=== PATIENT | male | born 1935 | race Caucasian/White ===

== ENCOUNTER → 2016-11-01 | Outpatient (CLI) | payer OTHER ==
[~2016-11-01] MED LIST: ADVIN25/60 INH; ALBU1AER9 INH; CHOL1000 PO; CIPR-255 PO; DOXY1TAB6 PO; GARL10007 PO; HYDR-5688 PO; KETO0.5S22 OPR; LEVO88TA3 PO; LOSA100T65 PO; MOME200A INH; NRV/10 PO; OXYC-609 PO; PHEN-775 PO; PHEN-876 PO; POTA20TA16 PO; POTASSIUM PO; PRDFOPS OPR; PRED-301 PO; RST/30 PO; VNTHFA/IN INH
[2016-11-01 14:58] LABS: BASO % 0.4 %; BASO ABS # 0.04 K/uL (0-0.2); COMPLETE YES; EOS % 4.6 %; HEMATOCRIT 47.8 % (42-52); IG% 0.4 %; LYMPH % 29.8 %; MEAN CELL VOLUME 84.5 fL (80-100); MEAN CORPUSCULAR HEMOGLOBIN 28.4 pg (25-34); MEAN CORPUSCULAR HGB CONC 33.7 g/dl (32-36); MEAN PLATELET VOLUME 10.7 fL (7.4-10.4); MONO % 15.3 %; NEUT % 49.5 %; PLATELET COUNT 306 K/uL (130-400); RED BLOOD COUNT 5.66 M/uL (4.7-6.1); WHITE BLOOD COUNT 11.07 K/uL (4.8-10.8)
[2016-11-01 15:09] LABS: CALCIUM 9.6 mg/dl (8.5-10.1)
[2016-11-01 15:14] LABS: ALT/SGPT 29 U/L (12-78); BLOOD UREA NITROGEN 10 mg/dl (7-18); BUN/CREATININE RATIO 8.6 (10-20); CARBON DIOXIDE 28 mmol/L (21-32); CHLORIDE 105 mmol/L (98-107); CHOLESTEROL 177 mg/dl (0-200); GLUCOSE 80 mg/dl (70-99); POTASSIUM 3.8 mmol/L (3.5-5.1); SODIUM 141 mmol/L (136-145); TRIGLYCERIDES 175 mg/dl (0-150); VERY LOW DENSITY LIPOPROT CALC 35 mg/dl
[2016-11-01 15:24] LABS: ALB/GLOB RATIO 1.3 (0.9-2); ALKALINE PHOSPHATASE 81 U/L (45-117); AST/SGOT 19 U/L (15-37); CHOLESTEROL/HDL RATIO 4.4; HDL CHOLESTEROL 40 mg/dl; LDL CHOLESTEROL CALCULATED 102 mg/dl
== END | disposition home or self-care (01) ==
LOC: C.LABBC 12:00
PROVIDERS: ATTEND Family Medicine
DX: E03.9 Hypothyroidism, unspecified (principal); D72.829 Elevated white blood cell count, unspecified; N40.1 Benign prostatic hyperplasia with lower urinary tract symptoms; I25.10 Atherosclerotic heart disease of native coronary artery without angina pectoris; I10 Essential (primary) hypertension

== ENCOUNTER → 2017-02-14 | Outpatient (CLI) | payer OTHER | END | disposition home or self-care (01) | LOC: C.LAB 16:33 | PROVIDERS: ATTEND Nurse Practitioner Family | DX: R30.0 Dysuria (principal) ==

== ENCOUNTER → 2017-02-22 | Outpatient (CLI) | payer OTHER | END | disposition home or self-care (01) | LOC: C.PATHSPEC 14:34 | PROVIDERS: ATTEND Nurse Practitioner Family | DX: R31.0 Gross hematuria (principal) ==

== ENCOUNTER → 2017-02-22 | Outpatient (CLI) | payer OTHER ==
[2017-02-22 16:13] LABS: BLOOD UREA NITROGEN 16 mg/dl (7-18); BUN/CREATININE RATIO 13.5 (10-20)
== END | disposition home or self-care (01) ==
LOC: C.LAB 14:42
PROVIDERS: ATTEND Nurse Practitioner Family
DX: N40.1 Benign prostatic hyperplasia with lower urinary tract symptoms (principal); R31.0 Gross hematuria

== ENCOUNTER → 2017-03-01 | Outpatient (CLI) | payer OTHER ==
[~2017-03-01] MED LIST changes: +OPTIRAY 320 IV PRN
--- NOTE | 2017-03-01 10:05 | DIAGNOSTIC IMAGING REPORT ---
CT ABD/PELVIS COMBO CLINICAL HISTORY: GROSS HEMATURIA COMPARISON STUDY: Noncontrast CT scan dated 12/01/2014 TECHNIQUE: Unenhanced images are obtained to the abdomen and pelvis. The patient was injected with 50 cc Optiray 320. After 5 minute delay, the patient is rescanned in a dynamic helical fashion during the additional administration of 50 cc of Optiray 320. A dose lowering technique was utilized adhering to the principles of ALARA. CT DOSE: 748.37 mGy.cm FINDINGS: Lower chest: There is bibasal atelectasis/interstitial scarring. The heart is borderline enlarged. Liver: The contrast-enhanced liver is normal in size, contour, and attenuation. There is no intrahepatic biliary ductal dilatation. The hepatic veins and portal veins are patent. Gallbladder: Cholelithiasis Spleen: Normal in size and attenuation. Pancreas: Unremarkable. Adrenal glands: Unremarkable. Kidneys: There is a 6 mm left renal calculus. There is left-sided hydronephrosis and hydroureter. There is an 11 mm lower pole left renal cyst. There is asymmetric left-sided bladder wall thickening, suspicious for a mass. Cystoscopic evaluation is recommended in follow-up Bowel: There are no transition zones to indicate bowel obstruction. There is no acute appendicitis. There is no acute diverticulitis. There is mild fecal retention. Peritoneum: There is no intraperitoneal free air or abdominal ascites. Vasculature: There is an infrarenal abdominal aortic aneurysm measuring 36 mm in diameter Adenopathy: There is an 8mm left iliac artery lymph node. Pelvic viscera: The prostate is enlarged. There is asymmetric left-sided bladder wall thickening suspicious for a mass. Skeletal structures: There are postsurgical changes of a lumbar spinal fusion. IMPRESSION: 1. Asymmetric left-sided bladder wall thickening suspicious for mass. This results in left-sided obstruction with left-sided hydroureteronephrosis. Cystoscopic evaluation is recommended in follow-up. 2. 6 mm left renal calculus 3. Cholelithiasis 4. 36 mm infrarenal abdominal aortic aneurysm Electronically signed by: Mario Rendon M.D. 03/01/2017 10:03 AM Dictated Date/Time: 03/01/2017 9:55 AM
== END | disposition home or self-care (01) ==
LOC: C.CTS 09:14
PROVIDERS: ATTEND Nurse Practitioner Family
DX: R31.0 Gross hematuria (principal); N20.0 Calculus of kidney; K80.20 Calculus of gallbladder without cholecystitis without obstruction; I71.4 Abdominal aortic aneurysm, without rupture

== ENCOUNTER → 2017-03-04 | Outpatient (CLI) | payer OTHER ==
[~2017-03-04] MED LIST changes: -OPTIRAY 320 IV PRN
--- NOTE | 2017-03-04 15:40 | DIAGNOSTIC IMAGING REPORT ---
CHEST 2 VIEWS ROUTINE CLINICAL HISTORY: CERVICAL DISC DISEASE, LEFT HAND WEAKNESS, limb swelling. Bladder carcinoma. Asthma. Preoperative study. COMPARISON STUDY: 12/01/2014 FINDINGS: The cardiac and mediastinal contours are normal. There is no evidence of focal pulmonary consolidation. There is no evidence of failure. No pleural effusions are visualized.[ On the PA film, there is slight sclerosis at the right T7 costovertebral junction. This is felt to be stable. There are old right-sided rib fractures. There are postsurgical changes within the cervical spine. IMPRESSION: No active disease in the chest. Electronically signed by: Mario Rendon M.D. 03/04/2017 3:39 PM Dictated Date/Time: 03/04/2017 3:37 PM
[2017-03-04 15:44] LABS: BASO % 0.2 %; BASO ABS # 0.02 K/uL (0-0.2); COMPLETE YES; EOS % 0.9 %; HEMATOCRIT 44.1 % (42-52); IG% 0.4 %; LYMPH % 21.7 %; LYMPH ABS # 2.51 K/uL (1.2-3.4); MEAN CELL VOLUME 85.1 fL (80-100); MEAN CORPUSCULAR HEMOGLOBIN 29.7 pg (25-34); MEAN CORPUSCULAR HGB CONC 34.9 g/dl (32-36); MEAN PLATELET VOLUME 10.9 fL (7.4-10.4); MONO % 10.6 %; NEUT % 66.2 %; PLATELET COUNT 289 K/uL (130-400); RED BLOOD COUNT 5.18 M/uL (4.7-6.1); WHITE BLOOD COUNT 11.55 K/uL (4.8-10.8)
[2017-03-04 16:09] LABS: BLOOD UREA NITROGEN 13 mg/dl (7-18); BUN/CREATININE RATIO 9.3 (10-20); CALCIUM 8.8 mg/dl (8.5-10.1); CARBON DIOXIDE 29 mmol/L (21-32); CHLORIDE 107 mmol/L (98-107); GLUCOSE 86 mg/dl (70-99); POTASSIUM 4.1 mmol/L (3.5-5.1); SODIUM 142 mmol/L (136-145)
== END | disposition home or self-care (01) ==
LOC: C.CPL 14:12
PROVIDERS: ATTEND Urology
DX: C67.9 Malignant neoplasm of bladder, unspecified (principal); M50.30 Other cervical disc degeneration, unspecified cervical region; M62.81 Muscle weakness (generalized); M79.89 Other specified soft tissue disorders

== ENCOUNTER → 2017-03-11 | Day surgery (SDC) | payer OTHER ==
[2017-03-06 13:47] VITALS: BMI 25.0
[~2017-03-11] VITALS: Ht 172.7 cm; Wt 75.0 kg
[~2017-03-11] MED LIST changes: +ACETAMINOPHEN 325 MG TAB PO PRN; +ATROPINE SULFATE 0.1 MG/ML 5ML SYR IV PRN; +BELLADONNA/OPIUM SUPP 60 MG SUPP PR ONE; +CIPROFLOXACIN / D5W 400 MG IV SCH; +CONRAY 30% 150ML BOTTLE ONE; +DEXAMETHASONE SOD INJ 4 MG/ML VIAL ONE; +EpHEDrine SULFATE INJ 50 MG/ML AMP IV PRN; +FENTANYL CITRATE INJ 50 MCG/1 ML 2 ML VIAL IV PRN; +FENTANYL CITRATE INJ 50 MCG/1 ML 2 ML VIAL ONE; +GLYCOPYRROLATE INJ 0.2 MG/ML VIAL ONE; -KETO0.5S22 OPR; +LACTATED RINGER'S 1000ML 1,000 ML IV SCH; +LIDOCAINE HCL 2% 2 ML VIAL (20MG/ML) ONE; -MOME200A INH; +NEOSTIGMINE METHYLSULFATE 5 MG/5 ML SYR ONE; +ONDANSETRON INJ 2 MG/ML 2 ML VIAL IV PRN; +ONDANSETRON INJ 2 MG/ML 2 ML VIAL ONE; -OXYC-609 PO; +OXYCODONE/ACETAMINOPHEN 5-325 TAB PO PRN; +PHENAZOPYRIDINE HCL 200 MG TAB PO STA; -POTASSIUM PO; -PRDFOPS OPR; +PROPOFOL IV EMULSION 10 MG/ML 20 ML VIAL IV ONE; +ROCURONIUM BROMIDE 10 MG/ML 5 ML VIAL IV ONE; +SODIUM CHLORIDE 0.9% 1000ML 1,000 ML IV SCH
[2017-03-11 12:33] VITALS: BP 155/89; PULSE 65; TEMP 36.8; O2SAT 96; Ht 172.7 cm; Wt 75.0 kg
--- NOTE | 2017-03-11 14:12 | History & Physical Bridge Note ---
H&P Re-Evaluation Bridge Note: I have examined the patient, reviewed the History & Physical and in the interval since the performance of the History & Physical I have noted the following changes of clinical significance: No changes noted
--- NOTE | 2017-03-11 16:25 | Discharge Instructions ---
Discharge Instructions Date of Service Mar 11, 2017. Admission Reason for Admission: Bladder Cancer Discharge Discharge Diagnosis / Problem: bladder cancer; hydronephrosis Discharge Goals Goal(s): Decrease discomfort, Improve function, Increase independence, Improve disease control Activity Recommendations Activity Limitations: resume your previous activity Lifting Limitations: none Exercise/Sports Limitations: none May Resume Sexual Activity: after follow-up appointment Shower/Bathe: no limitations Driving or Machine Use: resume 1 day after discharge . Instructions / Follow-Up Instructions / Follow-Up Please come to Dr. Conklin's office on Mar 15 at 9AM to have your catheter removed. It is normal for there to be some blood within the urine for the next several weeks. Discharge Diet Recommended Diet: Regular Diet Procedures Procedures Performed: Transurethral Resection Extra Large Bladder Tumor; Left Ureteral Stent, Cystoscopy Pending Studies Studies pending at discharge: no Medical Emergencies . Who to Call and When: Medical Emergencies: If at any time you feel your situation is an emergency, please call 911 immediately. . Non-Emergent Contact Non-Emergency issues call your: Urologist Call Non-Emergent contact if: you have a fever, temperature is above 101.5, your pain is not controlled . . "Provider Documentation" section prepared by Antwan Paredes. . VTE Core Measure Inpt VTE Proph given/why not?: Treatment not indicated [place] Drug Monitoring Program Search Results: patient reviewed within database, no issues identified
--- NOTE | 2017-03-11 16:41 | [facility] Operative Report ---
Operative Report Operative Date Mar 11, 2017. Pre-Operative Diagnosis Malignant Neoplasm of Bladder; left hydronephrosis Post-Operative Diagnosis Malignant Neoplasm of Bladder; left hydronephrosis Procedure(s) Performed Transurethral Resection of Large Bladder Tumor; Left Ureteral Stent (6Fx 26cm), Cystoscopy Surgeon Dr. Alexis Conklin Hydraulic Assembler Surgeon(s) None Estimated Blood Loss 20mL Findings Very large, papillary appearing bladder tumors covering the left half of the trigone and the bladder. Left UO buried within the tumor, but unroofed and stented. Specimens Specimen A. Bladder Tumor Drains [id number] stent Anesthesia Gen Complication(s) None Disposition Recovery Room / PACU (stable) Indications Large bladder tumor and hydronephrosis Description of Procedure Patient identified in the preoperative holding area and appropriate consent reviewed and completed. After being transported to the operating suite, he received appropriate general anesthesia and ciprofloxacin. I began the case by passing a 24 Palauan resectoscope with visual obturator and 30 lens. He has no evidence of stricture disease. His prostate is moderately enlarged with a relatively high bladder neck. Inspection of the bladder immediately reveals very large bladder tumors arising from the left lateral aspect of the trigone and left lateral bladder wall. Full extent of the tumor was hard to evaluate with a 30 lens, however examining with a 70 lens revealed that the tumor was limited to the left lateral bladder wall and trigone plus some extension anteriorly and to approximately the midline posteriorly. The right ureteral orifice was easily visualized but the left ureteral orifice was not seen. Prior to the procedure, I had told the patient I was uncertain his tumor was resectable, however after performing a full inspection with the rigid scope, I felt that there was a reasonable chance of full resection. In turn, I exchanged the visual obturator for a resecting loop element. I resected the tumor entirely, beginning at the medial section working laterally. After resecting this flush with the bladder wall, I obtained meticulous hemostasis. We did paralyze the patient prior to this resection for fear of an obturator reflex. I evacuated a significant amount of bladder tumor as specimen and passed it off of the table. I then returned to the bladder with the scope and began searching for the left ureteral orifice. I found an area that looked highly like the possible location of the UO, and probed it with a sensor wire and 6 Palauan open-ended catheter without success. As I moved further I noted a small amount of papillary tumor which I assumed was simple a few tumor fronds that I had missed with my initial resection. I subsequently used a resecting loop to re-resect this area which proved to successfully unroof and expose the left UO. I added the resected tumor to the specimen and then guided a sensor wire and 6 Palauan open-ended catheter into the left ureteral orifice. Fluoroscopic examination showed appropriate advancement toward the kidney, but I confirmed the anatomy further by performing a retrograde pyelogram. He was noted to have a very tortuous and very dilated left ureter. There was a full twist within the proximal ureter, but I was able to successfully guide a sensor wire around this to straighten the tortuosity. I then placed a 6 Palauan by 26 centimeter double-J ureteral stent. After confirming the stent position, I returned the bladder and again inspected for hemostasis. I ensured all chips were evacuated fully from the bladder, and I placed a wire through the scope to serve as a catheter guide. Utilizing this wire I placed a 22 Palauan councill tip catheter into the bladder. The balloon was inflated, and the case concluded. Patient was subsequently extubated and taken to the PACU in stable condition. Of note, I considered mitomycin C instillation, but elected to not place this medication secondary to the size of the resected field and the stent placement. I attest to the content of the Intraoperative Record and any orders documented therein. Any exceptions are noted below.
--- NOTE | 2017-03-11 17:15 | Anesthesiology Progress Note ---
Anesthesia Post Op Note Date & Time Mar 11, 2017 at 17:15 Vital Signs Pain Intensity: 0 Vital Signs Past 12 Hours Date Time Temp Pulse Resp B/P (MAP) Pulse Ox O2 Delivery O2 Flow Rate FiO2 03/11/17 17:11 121/87 17 17:07 57 16 17 17:07 71 16 94 17 17:07 57 16 17 17:07 71 16 94 17 17:06 132/95 17 17:06 132/95 03/11/17 17:02 66 11 95 03/11/17 17:02 66 11 95 03/11/17 17:02 66 11 03/11/17 17:02 66 11 03/11/17 17:01 139/77 03/11/17 17:00 65 17 96 17 17:00 65 17 03/11/17 16:56 134/86 1817 16:56 36.5 65 19 134/86 (94) 95 17 16:55 67 18 17 16:55 70 18 94 1817 16:52 133/91 17 16:50 65 14 97 18/17 16:50 64 14 1817 16:49 140/86 18/17 16:49 140/86 03/11/17 16:46 70 14 95 18/17 16:46 69 14 18/17 16:46 69 14 18/17 16:46 70 14 95 18/17 16:42 130/82 18/17 16:42 130/82 18/17 16:41 62 16 18/17 16:41 74 16 96 18/17 16:41 62 16 18/17 16:41 74 16 96 18/17 16:37 100/88 18/17 16:37 100/88 18/17 16:36 65 26 18/17 16:36 71 26 94 18/17 16:36 71 26 94 18/17 16:36 65 26 18/17 16:32 137/97 18/17 16:32 137/97 18/17 16:31 73 18 92 9/18/17 16:31 64 18 03/11/17 16:31 36.3 75 16 137/97 97 Nasal Cannula 2 03/11/17 16:31 64 18 03/11/17 16:31 73 18 92 03/11/17 12:33 36.8 65 18 155/89 (111) 96 Room Air Notes Mental Status: alert / awake / arousable, participated in evaluation Pt Amnestic to Procedure: Yes Nausea / Vomiting: adequately controlled Pain: adequately controlled Airway Patency, RR, SpO2: stable & adequate BP & HR: stable & adequate Hydration State: stable & adequate Anesthetic Complications: no major complications apparent
[2017-03-11 17:20] VITALS: BP 150/79; PULSE 61; TEMP 36.5; O2SAT 94
[2017-03-11 18:10] VITALS: BP 147/77; PULSE 69; TEMP 36.5; O2SAT 93
== END | disposition home or self-care (01) ==
LOC: C.ACU 11:12
PROVIDERS: ATTEND Urology
DX: C67.0 Malignant neoplasm of trigone of bladder (principal); N13.30 Unspecified hydronephrosis; N40.1 Benign prostatic hyperplasia with lower urinary tract symptoms; N13.8 Other obstructive and reflux uropathy; K21.9 Gastro-esophageal reflux disease without esophagitis; M19.90 Unspecified osteoarthritis, unspecified site; J45.909 Unspecified asthma, uncomplicated; I25.10 Atherosclerotic heart disease of native coronary artery without angina pectoris; J44.9 Chronic obstructive pulmonary disease, unspecified; I10 Essential (primary) hypertension; E03.9 Hypothyroidism, unspecified; M48.06 Spinal stenosis, lumbar region; F17.220 Nicotine dependence, chewing tobacco, uncomplicated; Z86.010 Personal history of colon polyps; Z87.440 Personal history of urinary (tract) infections; Z90.49 Acquired absence of other specified parts of digestive tract; Z80.0 Family history of malignant neoplasm of digestive organs; Z80.52 Family history of malignant neoplasm of bladder

== ENCOUNTER → 2017-03-20 | Outpatient (CLI) | payer OTHER ==
[~2017-03-20] MED LIST changes: -ACETAMINOPHEN 325 MG TAB PO PRN; -ATROPINE SULFATE 0.1 MG/ML 5ML SYR IV PRN; -BELLADONNA/OPIUM SUPP 60 MG SUPP PR ONE; -CIPR-255 PO; -CIPROFLOXACIN / D5W 400 MG IV SCH; -CONRAY 30% 150ML BOTTLE ONE; -DEXAMETHASONE SOD INJ 4 MG/ML VIAL ONE; -EpHEDrine SULFATE INJ 50 MG/ML AMP IV PRN; -FENTANYL CITRATE INJ 50 MCG/1 ML 2 ML VIAL IV PRN; -FENTANYL CITRATE INJ 50 MCG/1 ML 2 ML VIAL ONE; -GLYCOPYRROLATE INJ 0.2 MG/ML VIAL ONE; -LACTATED RINGER'S 1000ML 1,000 ML IV SCH; -LIDOCAINE HCL 2% 2 ML VIAL (20MG/ML) ONE; -NEOSTIGMINE METHYLSULFATE 5 MG/5 ML SYR ONE; -ONDANSETRON INJ 2 MG/ML 2 ML VIAL IV PRN; -ONDANSETRON INJ 2 MG/ML 2 ML VIAL ONE; -OXYCODONE/ACETAMINOPHEN 5-325 TAB PO PRN; -PHENAZOPYRIDINE HCL 200 MG TAB PO STA; -PROPOFOL IV EMULSION 10 MG/ML 20 ML VIAL IV ONE; -ROCURONIUM BROMIDE 10 MG/ML 5 ML VIAL IV ONE; -SODIUM CHLORIDE 0.9% 1000ML 1,000 ML IV SCH
[2017-03-20 12:40] LABS: URINE APPEARANCE CLEAR (CLEAR); URINE BILIRUBIN NEG (NEG); URINE COLOR YELLOW; URINE NITRITE NEG (NEG); URINE PH 6.5 (4.5-7.5); URINE SPECIFIC GRAVITY 1.013 (1.000-1.030); UROBILINOGEN NEG (NEG)
[2017-03-20 12:47] LABS: MANUAL MICROSCOPIC REQUIRED? NO; REVIEW REQ? NO
== END | disposition home or self-care (01) ==
LOC: C.LAB 10:45
PROVIDERS: ATTEND Urology
DX: C67.9 Malignant neoplasm of bladder, unspecified (principal)

== ENCOUNTER → 2017-06-10 | Outpatient (CLI) | payer OTHER ==
[2017-05-30 12:40] LABS: BLOOD UREA NITROGEN 15 mg/dl (7-18); BUN/CREATININE RATIO 12.7 (10-20); CREATININE 1.15 mg/dl (0.60-1.40)
[~2017-06-10] MED LIST changes: -ALBU1AER9 INH; -DOXY1TAB6 PO; -HYDR-5688 PO; +OPTIRAY 320 IV PRN; -PHEN-775 PO; -PHEN-876 PO
--- NOTE | 2017-06-10 13:29 | DIAGNOSTIC IMAGING REPORT ---
ABD/PELVIS COMBO CLINICAL HISTORY: 82 years-old Male presenting with bladder cancer follow-up. TECHNIQUE: Multidetector CT of the abdomen and pelvis was performed before and after the administration of intravenous contrast. IV contrast: 93 mL of Optiray 320. A dose lowering technique was used consistent with the principles of ALARA (as low as reasonably achievable). COMPARISON: 03/01/2017. CT DOSE (mGy.cm): The estimated cumulative dose is 1582.63 mGycm. FINDINGS: [employer]ified [employer] Professional topogram: Posterior lumbar fusion of L4-S1 with interbody spacers. Lung bases: Calcified granuloma at the right lung base. Thin-like opacities at the left lung base likely atelectasis or scarring. Multichamber enlargement of the heart. Aortic valve calcification. No pericardial or pleural effusion. Liver: Normal morphology. Normal density. No focal lesion. Patent hepatic vasculature. Biliary: No intrahepatic or extrahepatic biliary ductal dilatation. Gallbladder contains gallstones. Pancreas: Normal. Spleen: Normal. Adrenal glands: Normal. Kidneys and ureters: Nonobstructing 6 mm calculus in the interpolar region of the left kidney. Postcontrast imaging demonstrates moderate left pelvocaliectasis with left hydroureter. Left ureter remains dilated to the level of the left vesicoureteral junction. No right hydronephrosis. Allowing for nonopacification of the left ureter secondary to obstruction, no gross evidence of a filling defect to suggest mass lesion. A hypodense lesion at the lower pole of the left kidney is consistent with a simple cyst. Right ureter normal. Bladder: There has been interval resection of the irregular bladder wall thickening along the left wall of the bladder. Mild circumferential bladder wall thickening. Minimal polypoid irregularity gage (series 7 image 62). Pelvic organs: Prostate enlargement likely secondary to benign prostatic hyperplasia. Bowel: Moderate stool burden throughout normal caliber colon. No bowel obstruction. Peritoneal cavity: No free fluid or intraperitoneal gas. Lymph nodes: Few subcentimeter external iliac lymph nodes. No pathologically enlarged lymph nodes by CT size criteria. Vasculature: Aneurysmal dilatation of the infrarenal abdominal aorta, which measures up to 3.4 cm in diameter, previously 3.6 cm. Abdominal wall: Normal. Musculoskeletal: Post surgical changes of bilateral transpedicular screw and ann-marie fixation of L4-S1 with interbody spacers and laminectomy defects of L4-5. No gross evidence of hardware convocation. Bone island noted at L3. Osteopenia. IMPRESSION: 1. Findings consistent with cystoscopic resection of the previously noted bladder mass along the left lateral luminal wall. 2 small polypoid foci along the left lateral lumen suggest residual disease. No additional sites of disease in the bilateral collecting systems. No lymphadenopathy or evidence of metastatic disease in abdomen or pelvis. 2. Left hydroureteronephrosis, unchanged despite resection. 3. 3.4 cm infrarenal abdominal aortic aneurysm. Electronically signed by: Rafiq Kearney M.D. 06/10/2017 1:28 PM Dictated Date/Time: 06/10/2017 1:17 PM
== END | disposition home or self-care (01) ==
LOC: C.CTS 11:38
PROVIDERS: ATTEND Urology
DX: C67.9 Malignant neoplasm of bladder, unspecified (principal); N32.89 Other specified disorders of bladder; N13.30 Unspecified hydronephrosis; I71.4 Abdominal aortic aneurysm, without rupture

== ENCOUNTER → 2017-06-19 | Outpatient (CLI) | payer OTHER ==
[~2017-06-19] MED LIST changes: +CIPR-255 PO; +HYDR-5688 PO; +HYT/2 PO; +MCRB100HP PO; +NITR1CAP16 PO; -OPTIRAY 320 IV PRN; +OXYC-57 PO; +PHEN-775 PO; +PHEN95TA14 PO; +POTA-639 PO; -POTA20TA16 PO; +TRMCR130WC TOP
[2017-06-19 15:46] LABS: BASO % 0.3 %; BASO ABS # 0.04 K/uL (0-0.2); EOS % 0.9 %; EOS ABS # 0.11 K/uL (0-0.5); HEMATOCRIT 43.7 % (42-52); HEMOGLOBIN 14.8 g/dL (14.0-18.0); IG# 0.09 K/uL (0.00-0.02); LYMPH ABS # 2.02 K/uL (1.2-3.4); MEAN CELL VOLUME 87.8 fL (80-100); MEAN CORPUSCULAR HEMOGLOBIN 29.7 pg (25-34); MEAN CORPUSCULAR HGB CONC 33.9 g/dl (32-36); MONO % 8.4 %; NEUT % 72.6 %; NEUT ABS # 8.64 K/uL (1.4-6.5); PLATELET COUNT 297 K/uL (130-400); RED CELL DISTRIBUTION WIDTH CV 15.6 % (11.5-14.5); RED CELL DISTRIBUTION WIDTH SD 49.8 fL (36.4-46.3)
[2017-06-19 16:05] LABS: BLOOD UREA NITROGEN 17 mg/dl (7-18); CALCIUM 9.3 mg/dl (8.5-10.1); CARBON DIOXIDE 29 mmol/L (21-32); CREATININE 1.12 mg/dl (0.60-1.40); GLUCOSE 87 mg/dl (70-99); SODIUM 136 mmol/L (136-145)
== END | disposition home or self-care (01) ==
LOC: C.LAB 13:52
PROVIDERS: ATTEND Urology
DX: C67.9 Malignant neoplasm of bladder, unspecified (principal)

== ENCOUNTER 2017-06-25 09:23 | Day surgery (SDC) | payer OTHER ==
[~2017-06-25] VITALS: Ht 172.7 cm; Wt 75.0 kg
[~2017-06-25 09:23] MED LIST changes: +ATROPINE SULFATE 0.1 MG/ML 5ML SYR IV PRN; -CIPR-255 PO; +CIPROFLOXACIN / D5W 400 MG IV SCH; +EpHEDrine SULFATE INJ 50 MG/ML AMP IV PRN; +FENTANYL CITRATE INJ 50 MCG/1 ML 2 ML VIAL IV PRN; -HYDR-5688 PO; -HYT/2 PO; +KETOROLAC TROMETHAMINE 30 MG/ML VIAL IV. PRN; +LACTATED RINGER'S 1000ML 1,000 ML IV SCH; -MCRB100HP PO; +MITOMYCIN FOR INJ 40 MG in SYRINGE 40 ML IR SCH; -NITR1CAP16 PO; +ONDANSETRON INJ 2 MG/ML 2 ML VIAL IV PRN; -OXYC-57 PO; -PHEN-775 PO; -PHEN95TA14 PO; -TRMCR130WC TOP
[2017-06-25] MEDS ORDERED: MCRB100HP PO (09:47)
[2017-06-25 09:51] VITALS: BP 150/94; PULSE 62; TEMP 36.7; O2SAT 97; Ht 172.7 cm; Wt 75.0 kg
[2017-06-25] MEDS ORDERED: FENTANYL CITRATE INJ 50 MCG/1 ML 2 ML VIAL ONE (10:27)
[2017-06-25] MEDS ORDERED: NITR1CAP16 PO (10:46)
[2017-06-25] MEDS ORDERED: HYDR-5688 PO (10:46)
[2017-06-25] MEDS ORDERED: PHEN95TA14 PO (10:46)
--- NOTE | 2017-06-25 10:48 | Discharge Instructions ---
Discharge Instructions Date of Service Jun 25, 2017. Admission Reason for Admission: Bladder Tumor Discharge Discharge Diagnosis / Problem: bladder cancer Discharge Goals Goal(s): Decrease discomfort, Improve function, Increase independence, Improve disease control Activity Recommendations Activity Limitations: resume your previous activity Lifting Limitations: none Exercise/Sports Limitations: none May Resume Sexual Activity: when tolerated Shower/Bathe: no limitations Driving or Machine Use: resume 1 day after discharge . Instructions / Follow-Up Instructions / Follow-Up Please keep your previously scheduled follow up appointment with Dr. Conklin. Current Hospital Diet Patient's current hospital diet: Discharge Diet Recommended Diet: Regular Diet Pending Studies Studies pending at discharge: no Medical Emergencies . Who to Call and When: Medical Emergencies: If at any time you feel your situation is an emergency, please call 911 immediately. . Non-Emergent Contact Non-Emergency issues call your: Urologist Call Non-Emergent contact if: you have a fever, temperature is above 101.5, your pain is not controlled, your pain is worsening . . "Provider Documentation" section prepared by Antwan Paredes. . VTE Core Measure Inpt VTE Proph given/why not?: Treatment not indicated [place] Drug Monitoring Program Search Results: patient reviewed within database, no issues identified
[2017-06-25] MEDS ORDERED: LIDOCAINE HCL 2% 2 ML VIAL (20MG/ML) ONE (11:16)
[2017-06-25] MEDS ORDERED: ONDANSETRON INJ 2 MG/ML 2 ML VIAL ONE (11:16)
[2017-06-25] MEDS ORDERED: EpHEDrine SULFATE 50MG/5ML SYR ONE (11:16)
[2017-06-25] MEDS ORDERED: PROPOFOL IV EMULSION 10 MG/ML 20 ML VIAL IV ONE (11:16)
[2017-06-25] MEDS ORDERED: DEXAMETHASONE SOD INJ 4 MG/ML VIAL ONE (11:16)
[2017-06-25] MEDS ORDERED: SODIUM CHLORIDE 0.9% 1000ML 1,000 ML IV SCH (11:50)
[2017-06-25] MEDS ORDERED: OXYCODONE/ACETAMINOPHEN 5-325 TAB PO PRN ×2 (12:00)
--- NOTE | 2017-06-25 12:12 | [facility] Operative Report ---
Operative Report Operative Date Jun 25, 2017. Pre-Operative Diagnosis Bladder Cancer Post-Operative Diagnosis Bladder Cancer Procedure(s) Performed Transurethral Resection of Bladder Tumor (20+ tumors) with Instillation of Mitomycin C Surgeon Dr. Yohan Conklin Electrical Superintendent Surgeon(s) none Estimated Blood Loss 5 ml Findings multifocal bladder tumor recurrence. 20+ tumors. largest ~2cm, but numerous > 1cm (total area treated 10cm L UO tight appearing, no tumor adjacent to the UO Specimens a. bladder tumors Drains 18F catheter Anesthesia Gen Complication(s) None Disposition Recovery Room / PACU (stable) Indications Bladder Ca Description of Procedure The patient was identified in the preoperative holding area, appropriate informed consents reviewed and completed and he was transported to the operating suite. He received appropriate preoperative antibiotics in the form of ciprofloxacin. Adequate general anesthesia was achieved, and he was placed in dorsal lithotomy position where he was sterilely prepped and draped in standard fashion. I begin the case by passing a 24 Mosotho resectoscope with 30 lens and visual obturator. Inspection of the urethra revealed no evidence of stricture disease, he has a moderately to severely enlarged prostate with a high bladder neck. Inspection of the bladder utilizing both a 30 and 70 lens, revealed a heavily trabeculated bladder with numerous papillary appearing bladder tumor recurrences. His prior resection site on the left lateral wall was largely free of tumor. More anterior to it, however, there were 3 or 4 1-2 cm tumors. There additionally were small papillary tumors of approximately 1 cm each in size scattered across the posterior wall. There was a concentration of small tumors in the dome of the bladder. In total, I counted in excess of 20 + tumors. Total estimated area of resection is greater than 10 cm. I resected the largest of these tumors and passed the specimens off the table labeled bladder tumor for pathology. I then fulgurated the smallest tumors. Once I felt that I treated all the visible tumors, I performed a repeat full cystoscopy utilizing both a 30 and 70 lenses. This took 2 additional inspections is identified small tumors that were missed during the first treatment course on both my first and second surveillance look. Finally, I feel that I treated all of the visible tumor, hemostasis was excellent, all specimens were irrigated from the bladder, and the case concluded. I placed an 18 Mosotho coud catheter and instilled 40 mL mitomycin-C before clamping the catheter. Appropriate chemotherapy precautions were taken prior to transferring the patient to the PACU. There were no complications. I attest to the content of the Intraoperative Record and any orders documented therein. Any exceptions are noted below.
--- NOTE | 2017-06-25 12:33 | Anesthesiology Progress Note ---
Anesthesia Post Op Note Date & Time Jun 25, 2017 at 12:33 Vital Signs Pain Intensity: 2 Vital Signs Past 12 Hours Date Time Temp Pulse Resp B/P (MAP) Pulse Ox O2 Delivery O2 Flow Rate FiO2 06/25/17 11:55 36.7 72 18 119/74 97 Nasal Cannula 4 06/25/17 09:51 36.7 62 18 150/94 (112) 97 Room Air Notes Mental Status: alert / awake / arousable, participated in evaluation Pt Amnestic to Procedure: Yes Nausea / Vomiting: adequately controlled Pain: adequately controlled Airway Patency, RR, SpO2: stable & adequate BP & HR: stable & adequate Hydration State: stable & adequate Anesthetic Complications: no major complications apparent
[2017-06-25 12:45] VITALS: BP 146/86; PULSE 60; TEMP 36.3; O2SAT 93
[2017-06-25 13:15] VITALS: BP 146/85; PULSE 63; O2SAT 93
[2017-06-25 13:48] VITALS: BP 151/92; PULSE 66; TEMP 36.3; O2SAT 95
[2017-06-25 14:30] VITALS: BP 132/85; PULSE 60; O2SAT 96
[2017-10-14] MEDS ORDERED: PHEN95TA14 PO (07:19)
[2017-10-14] MEDS ORDERED: CIPR-255 PO (07:19)
[2017-11-18] MEDS ORDERED: PHEN-775 PO (13:15)
[2017-11-18] MEDS ORDERED: HYT/2 PO (13:15)
[2017-11-18] MEDS ORDERED: TRMCR130WC TOP (13:15)
[2017-11-18] MEDS ORDERED: OXYC-57 PO (15:11)
== END 2017-06-25 15:09 | disposition home or self-care (01) ==
LOC: C.ACU 09:23
PROVIDERS: ATTEND Urology
DX: C67.9 Malignant neoplasm of bladder, unspecified (principal); K21.9 Gastro-esophageal reflux disease without esophagitis; M19.90 Unspecified osteoarthritis, unspecified site; J44.9 Chronic obstructive pulmonary disease, unspecified; I10 Essential (primary) hypertension; E03.9 Hypothyroidism, unspecified; Z86.14 Personal history of Methicillin resistant Staphylococcus aureus infection; Z87.440 Personal history of urinary (tract) infections; Z90.89 Acquired absence of other organs; Z80.0 Family history of malignant neoplasm of digestive organs; Z80.52 Family history of malignant neoplasm of bladder; I25.10 Atherosclerotic heart disease of native coronary artery without angina pectoris; Z87.442 Personal history of urinary calculi; I71.4 Abdominal aortic aneurysm, without rupture

== ENCOUNTER → 2017-10-02 | Outpatient (CLI) | payer OTHER ==
[~2017-10-02] MED LIST changes: -ATROPINE SULFATE 0.1 MG/ML 5ML SYR IV PRN; -CIPROFLOXACIN / D5W 400 MG IV SCH; -EpHEDrine SULFATE INJ 50 MG/ML AMP IV PRN; -FENTANYL CITRATE INJ 50 MCG/1 ML 2 ML VIAL IV PRN; +HYDR-5688 PO; -KETOROLAC TROMETHAMINE 30 MG/ML VIAL IV. PRN; -LACTATED RINGER'S 1000ML 1,000 ML IV SCH; +MCRB100HP PO; -MITOMYCIN FOR INJ 40 MG in SYRINGE 40 ML IR SCH; -ONDANSETRON INJ 2 MG/ML 2 ML VIAL IV PRN; +PHEN95TA14 PO
[2017-10-02 15:34] LABS: BASO % 0.4 %; BASO ABS # 0.04 K/uL (0-0.2); EOS % 1.8 %; EOS ABS # 0.19 K/uL (0-0.5); HEMATOCRIT 42.9 % (42-52); HEMOGLOBIN 15.1 g/dL (14.0-18.0); IG# 0.04 K/uL (0.00-0.02); LYMPH % 19.7 %; LYMPH ABS # 2.09 K/uL (1.2-3.4); MEAN CELL VOLUME 84.8 fL (80-100); MEAN CORPUSCULAR HEMOGLOBIN 29.8 pg (25-34); MEAN CORPUSCULAR HGB CONC 35.2 g/dl (32-36); MEAN PLATELET VOLUME 10.4 fL (7.4-10.4); MONO % 7.8 %; MONO ABS # 0.83 K/uL (0.11-0.59); NEUT % 69.9 %; PLATELET COUNT 278 K/uL (130-400); RED CELL DISTRIBUTION WIDTH CV 15.4 % (11.5-14.5); RED CELL DISTRIBUTION WIDTH SD 47.2 fL (36.4-46.3); WHITE BLOOD COUNT 10.59 K/uL (4.8-10.8)
--- NOTE | 2017-10-02 15:42 | DIAGNOSTIC IMAGING REPORT ---
CHEST 2 VIEWS ROUTINE HISTORY: 82 years-old Male C67.9 Bladder cancer, [facility], SEND TO [facility] preoperative exam. No acute chest complaints COMPARISON: Chest radiograph 03/04/2017 TECHNIQUE: PA and lateral views of the chest FINDINGS: Cardiomediastinal and hilar silhouettes are within normal limits. There is no pneumothorax, pleural effusion, focal airspace consolidation or overt pulmonary edema. Chronic blunting of the left costophrenic angle with linear subsegmental left basilar opacities suggesting atelectasis. Hyperinflation. Calcified right hilar lymph nodes. Remote right-sided rib fractures. Fusion hardware of the cervical spine. IMPRESSION: Mild hyperinflation without acute process. The above report was generated using voice recognition software. It may contain grammatical, syntax or spelling errors. Electronically signed by: Louis Parks M.D. 10/02/2017 3:41 PM Dictated Date/Time: 10/02/2017 3:39 PM
[2017-10-02 15:58] LABS: BLOOD UREA NITROGEN 11 mg/dl (7-18); CALCIUM 8.9 mg/dl (8.5-10.1); CARBON DIOXIDE 26 mmol/L (21-32); CREATININE 1.29 mg/dl (0.60-1.40); GLUCOSE 123 mg/dl (70-99); SODIUM 136 mmol/L (136-145)
== END | disposition home or self-care (01) ==
LOC: C.LAB 15:04
PROVIDERS: ATTEND Urology
DX: C67.9 Malignant neoplasm of bladder, unspecified (principal)

== ENCOUNTER → 2017-10-14 | Day surgery (SDC) | payer OTHER ==
[2017-10-04 13:48] VITALS: BMI 25.0
[~2017-10-14] VITALS: Ht 172.7 cm; Wt 75.0 kg
[~2017-10-14] MED LIST changes: +ACETAMINOPHEN 325 MG TAB PO PRN; +ATROPINE SULFATE 0.1 MG/ML 5ML SYR IV PRN; +CIPR-255 PO; +CIPROFLOXACIN / D5W 400 MG IV SCH; +DEXAMETHASONE SOD INJ 4 MG/ML VIAL ONE; +EpHEDrine SULFATE INJ 50 MG/ML AMP IV PRN; +FENTANYL CITRATE INJ 50 MCG/1 ML 2 ML VIAL IV PRN; +FENTANYL CITRATE INJ 50 MCG/1 ML 2 ML VIAL ONE; -HYDR-5688 PO; +HYDROCODONE/ACETAMIN 5/325MG TAB PO PRN; +LACTATED RINGER'S 1000ML 1,000 ML IV SCH; +LIDOCAINE HCL 2% 2 ML VIAL (20MG/ML) ONE; -MCRB100HP PO; +MIDAZOLAM HCL 1 MG/ML 2ML VIAL ONE; +ONDANSETRON INJ 2 MG/ML 2 ML VIAL IV PRN; +ONDANSETRON INJ 2 MG/ML 2 ML VIAL ONE; +PROPOFOL IV EMULSION 10 MG/ML 20 ML VIAL IV ONE; +SODIUM CHLORIDE 0.9% 1000ML 1,000 ML IV SCH
[2017-10-14 05:49] VITALS: BP 166/96; PULSE 60; TEMP 36.6; O2SAT 95; Ht 172.7 cm; Wt 75.0 kg
--- NOTE | 2017-10-14 07:21 | Discharge Instructions ---
Discharge Instructions Date of Service Oct 14, 2017. Admission Reason for Admission: Bladder Cancer Discharge Discharge Diagnosis / Problem: bladder cancer Discharge Goals Goal(s): Decrease discomfort, Improve function, Increase independence, Improve disease control Activity Recommendations Activity Limitations: resume your previous activity Lifting Limitations: none Exercise/Sports Limitations: none May Resume Sexual Activity: when tolerated Shower/Bathe: no limitations Driving or Machine Use: resume 1 day after discharge . Instructions / Follow-Up Instructions / Follow-Up Please keep your previously scheduled follow up appointment. Current Hospital Diet Patient's current hospital diet: Discharge Diet Recommended Diet: Regular Diet Pending Studies Studies pending at discharge: no Medical Emergencies . Who to Call and When: Medical Emergencies: If at any time you feel your situation is an emergency, please call 911 immediately. . Non-Emergent Contact Non-Emergency issues call your: Urologist Call Non-Emergent contact if: you have a fever, temperature is above 101.5, your pain is not controlled . . "Provider Documentation" section prepared by Antwan Paredes. .
--- NOTE | 2017-10-14 07:48 | [facility] Operative Report ---
Operative Report Operative Date Oct 14, 2017. Pre-Operative Diagnosis Bladder cancer Post-Operative Diagnosis Bladder cancer Procedure(s) Performed Cystoscopy, Transurethral Resection of Bladder Tumor Surgeon Dr. Conklin Grievance And Appeals Specialist Surgeon(s) none Estimated Blood Loss 0 cc Specimens A: Bladder tumor Anesthesia Type General Complication(s) none Disposition yes Recovery Room / PACU Indications History of bladder cancer Description of Procedure Patient was identified in the preoperative holding area, appropriate informed consents reviewed and completed and the patient was transported to the operating suite. Upon arrival he received appropriate preoperative antibiotics in the form of ciprofloxacin. Adequate general anesthesia was achieved and he was placed in dorsal lithotomy position where he was sterilely prepped and draped in standard fashion. I began the case by passing a 27 English resectoscope with 30 lens and visual ball fringe machine operator. His prostate is moderately enlarged. His bladder was fully inspected. He has a small tumor on the right lateral wall, numerous ulcerated areas on the posterior wall consistent with healing resection sites from his past surgery, and he additionally has 2 papillary tumors at the dome of the bladder. I exchanged the visual obturator for a resecting loop and resected the 2 papillary tumors adjacent to the dome. The resected tumor was passed off the table as a specimen labeled bladder tumor. I then used the loop to fulgurate the areas on the posterior wall that were ulcerated and appeared to be healing. I also resected the tumor on the right lateral wall. A full inspection was carried out utilizing a 70 lens again. There are no other tumors visualized. I concluded the case, emptied the bladder, and the patient was extubated and taken to the PACU in stable condition. I attest to the content of the Intraoperative Record and any orders documented therein. Any exceptions are noted below.
[2017-10-14 08:30] VITALS: BP 146/89; PULSE 61; TEMP 36.7; O2SAT 95
--- NOTE | 2017-10-14 08:30 | Anesthesiology Progress Note ---
Anesthesia Post Op Note Date & Time Oct 14, 2017 at 08:30 Vital Signs Pain Intensity: 0 Vital Signs Past 12 Hours Date Time Temp Pulse Resp B/P (MAP) Pulse Ox O2 Delivery O2 Flow Rate FiO2 10/14/17 08:27 63 15 94 10/14/17 08:27 50 15 10/14/17 08:26 137/83 10/14/17 08:24 138/81 10/14/17 08:22 64 17 138/100 92 10/14/17 08:22 59 17 10/14/17 08:18 36.7 60 15 138/81 (91) 94 Room Air Oxymask 10/14/17 08:17 70 16 94 10/14/17 08:17 52 16 10/14/17 08:16 67 15 144/92 93 10/14/17 08:16 51 15 10/14/17 08:12 146/102 10/14/17 08:11 57 17 10/14/17 08:11 68 17 95 10/14/17 08:06 55 13 10/14/17 08:06 67 13 137/92 94 10/14/17 08:01 69 13 135/86 93 10/14/17 08:01 63 13 10/14/17 07:57 148/91 10/14/17 07:56 73 19 94 10/14/17 07:56 51 19 10/14/17 07:53 155/89 10/14/17 07:52 161/103 10/14/17 07:51 58 14 10/14/17 07:51 36.4 74 16 155/89 (91) 96 Oxymask 10 10/14/17 07:51 77 14 96 10/14/17 05:49 36.6 60 18 166/96 (119) 95 Room Air Notes Mental Status: alert / awake / arousable, participated in evaluation Pt Amnestic to Procedure: Yes Nausea / Vomiting: adequately controlled Pain: adequately controlled Airway Patency, RR, SpO2: stable & adequate BP & HR: stable & adequate Hydration State: stable & adequate Anesthetic Complications: no major complications apparent
[2017-10-14 09:00] VITALS: BP 134/74; PULSE 60; TEMP 36.7; O2SAT 96
== END | disposition home or self-care (01) ==
LOC: C.ACU 05:21
PROVIDERS: ATTEND Urology
DX: C67.1 Malignant neoplasm of dome of bladder (principal); C67.2 Malignant neoplasm of lateral wall of bladder; N40.1 Benign prostatic hyperplasia with lower urinary tract symptoms; N13.8 Other obstructive and reflux uropathy; K21.9 Gastro-esophageal reflux disease without esophagitis; M19.90 Unspecified osteoarthritis, unspecified site; J45.909 Unspecified asthma, uncomplicated; I10 Essential (primary) hypertension; E03.9 Hypothyroidism, unspecified; M48.061 Spinal stenosis, lumbar region without neurogenic claudication; M54.16 Radiculopathy, lumbar region; F17.220 Nicotine dependence, chewing tobacco, uncomplicated; Z87.442 Personal history of urinary calculi; Z86.010 Personal history of colon polyps; Z85.828 Personal history of other malignant neoplasm of skin; Z90.49 Acquired absence of other specified parts of digestive tract; Z88.0 Allergy status to penicillin; Z79.82 Long term (current) use of aspirin

== ENCOUNTER → 2017-10-25 | Outpatient (CLI) | payer OTHER ==
[~2017-10-25] MED LIST changes: -ACETAMINOPHEN 325 MG TAB PO PRN; -ATROPINE SULFATE 0.1 MG/ML 5ML SYR IV PRN; -CIPROFLOXACIN / D5W 400 MG IV SCH; -DEXAMETHASONE SOD INJ 4 MG/ML VIAL ONE; -EpHEDrine SULFATE INJ 50 MG/ML AMP IV PRN; -FENTANYL CITRATE INJ 50 MCG/1 ML 2 ML VIAL IV PRN; -FENTANYL CITRATE INJ 50 MCG/1 ML 2 ML VIAL ONE; -HYDROCODONE/ACETAMIN 5/325MG TAB PO PRN; -LACTATED RINGER'S 1000ML 1,000 ML IV SCH; -LIDOCAINE HCL 2% 2 ML VIAL (20MG/ML) ONE; -MIDAZOLAM HCL 1 MG/ML 2ML VIAL ONE; -ONDANSETRON INJ 2 MG/ML 2 ML VIAL IV PRN; -ONDANSETRON INJ 2 MG/ML 2 ML VIAL ONE; -PROPOFOL IV EMULSION 10 MG/ML 20 ML VIAL IV ONE; -SODIUM CHLORIDE 0.9% 1000ML 1,000 ML IV SCH
[2017-10-25 14:16] LABS: ALBUMIN 4.1 gm/dl (3.4-5.0); ALKALINE PHOSPHATASE 82 U/L (45-117); ALT/SGPT 23 U/L (12-78); AST/SGOT 15 U/L (15-37); BLOOD UREA NITROGEN 12 mg/dl (7-18); CALCIUM 9.7 mg/dl (8.5-10.1); CARBON DIOXIDE 29 mmol/L (21-32); CREATININE 1.27 mg/dl (0.60-1.40); GLUCOSE 84 mg/dl (70-99); SODIUM 137 mmol/L (136-145); TOTAL PROTEIN 8.2 gm/dl (6.4-8.2)
== END | disposition home or self-care (01) ==
LOC: C.LABBC 12:04
PROVIDERS: ATTEND Internal Medicine
DX: J45.909 Unspecified asthma, uncomplicated (principal); I10 Essential (primary) hypertension; M48.061 Spinal stenosis, lumbar region without neurogenic claudication; E03.9 Hypothyroidism, unspecified; C67.9 Malignant neoplasm of bladder, unspecified; I25.10 Atherosclerotic heart disease of native coronary artery without angina pectoris

== ENCOUNTER 2018-09-03 15:00 | Inpatient (IN) ==
[2018-09-03] MEDS ORDERED: ACETAMINOPHEN 650 MG SUPP PR STA (16:53)
[2018-09-03] MEDS ORDERED: ALBUT/IPRATROP 3MG/0.5MG NEB 3 ML VIAL NEB STA (16:53)
--- NOTE | 2018-09-03 17:22 | XRay Report ---
XR chest 1V portable HISTORY: post op fever COMPARISON: Chest 11/10/2017. FINDINGS: Cervical spinal fusion hardware is again noted. The lungs are clear. No pleural effusions. No pneumothorax. Old, healed right posterior rib fractures. The heart remains normal in size. IMPRESSION: No significant change compared to the prior study. No acute process. Electronically signed by: Magen Chairez M.D. 09/03/2018 5:21 PM
[2018-09-03 17:25] LABS: Base Excess VBG 0.2 mEq/L; Oxygen Saturation VBG 87.2 %; pH VBG 7.47 (7.36-7.41)
[2018-09-03 17:30] LABS: Hematocrit (blood only) 47.9 % (42-52); Hemoglobin 17.1 g/dL (14.0-18.0); Mean Corpuscular Hgb Conc 35.7 g/dL (32-36); Mean Corpuscular Volume 85.5 fL (80-100); Mean Platelet Volume 11.9 fL (7.4-10.4); Platelet Count 262 K/uL (130-400); RDW Coefficient of Variation 14.9 % (11.5-14.5); RDW Standard Deviation 46.7 fL (36.4-46.3); White Blood Count 38.57 K/uL (4.8-10.8)
[2018-09-03 17:32] LABS: INR 1.1 (0.9-1.1); Partial Thromboplastin Ratio 0.9; Partial Thromboplastin Time 25.4 Seconds (21.0-31.0); Prothrombin Time 10.9 Seconds (9.0-12.0)
[2018-09-03] MEDS: SODIUM CHLORIDE 0.9% 1000ML 1,000 ML IV SCH ×2 (17:39→20:53)
[2018-09-03 17:53] LABS: Appearance Urine Turbid (Clear); Bacteria Urine Automated 2+ (Negative); Bilirubin Urine Negative (Negative); Blood Urine 2+ (Negative); Color Urine Dark Yellow; Glucose Urine UA Negative (Negative); Ketones Urine Trace (Negative); Leukocyte Esterase Urine 3+ (Negative); Nitrite Urine Positive (Negative); RBC Urine Automated >30 /hpf (0-4); Urobilinogen Urine Negative (Negative); WBC Urine Automated >30 /hpf (0-5); pH Urine 8.5 (4.5-7.5)
[2018-09-03 18:10] LABS: Alanine Aminotransferase 26 U/L (12-78); Alkaline Phosphatase 86 U/L (45-117); Aspartate Aminotransferase 19 U/L (15-37); BUN Creatinine Ratio 11.7 (10-20); Bilirubin,Total 2.1 mg/dl (0.2-1); Blood Urea Nitrogen 18 mg/dl (7-18); Calcium 8.6 mg/dl (8.5-10.1); Carbon Dioxide 24 mmol/L (21-32); Chloride 101 mmol/L (98-107); Creatinine Clr Calc Pharmacy 41.5 ml/min; Est GFR (African American) 49.1; Est GFR (Non-African American) 42.4; Glucose 109 mg/dl (70-99); Magnesium 1.9 mg/dl (1.8-2.4); Potassium 4.2 mmol/L (3.5-5.1); Sodium 134 mmol/L (136-145); Total Protein 8.1 gm/dl (6.4-8.2); Troponin I < 0.015 ng/ml (0-0.045)
[2018-09-03 18:10] LABS: Protein Urine 2+ (Negative)
--- NOTE | 2018-09-03 18:20 | CT Scan Report ---
CT head/brain wo con CLINICAL HISTORY: 83 years-old Male presenting with ams. TECHNIQUE: Multidetector CT imaging of the head was performed without the use of intravenous contrast . IV contrast: None. One or more dose lowering techniques were used consistent with the principles of ALARA (as low as reasonably achievable), including automatic exposure control, mA or kV adjustment t o individual patient size, and/or use of iterative reconstruction. COMPARISON: 02/01/2012. CT DOSE (mGy.cm): The estimated cumulative dose is 1051.80 mGy.cm. FINDINGS: Measuring Machine Operator topogram: The patient is edentulous. Ventricles and sulci normal in size. No hemorrhage. Periventricular and subcortical white matter hypo attenuation, nonspecific but likely indicative of chronic small vessel ischemic change. No acute terr itorial infarct. No mass effect or midline shift. No extra-axial fluid collection. Paranasal sinuses and mastoid air cells clear. Calvarium intact. Intracranial atherosclerosis noted. IMPRESSION: 1. Chronic small vessel ischemic change. No acute intracranial abnormality. Electronically signed by: Rafiq Kearney M.D. 09/03/2018 6:19 PM
[2018-09-03] MEDS ORDERED: cefTRIAXone SODIUM 1,000 MG/50 ML BAG IV STA (18:21)
[2018-09-03 18:22] LABS: ALC (manual) 1.54 K/uL (1.2-3.4); Lymphocytes # (manual) 1.54 K/uL (1.2-3.4); RBC Morphology Unremarkable
[2018-09-03 18:25] LABS: Influenza A virus by PCR Neg for Influ A (Neg); Influenza B virus by PCR Neg for Influ B (Neg)
--- NOTE | 2018-09-03 18:39 | CT Scan Report ---
CT abd pelvis wo con CLINICAL HISTORY: 83 years-old Male presenting with post op bladder surg abdominal pain/fever. TECHNIQUE: Multidetector CT of the abdomen and pelvis was performed without the use of intravenous co ntrast. IV contrast: None. One or more dose lowering techniques were used consistent with the princip les of ALARA (as low as reasonably achievable), including automatic exposure control, mA or kV adjust ment to individual patient size, and/or use of iterative reconstruction. COMPARISON: 06/10/2017. CT DOSE (mGy.cm): The estimated cumulative dose is 713.61 mGy.cm. FINDINGS: Panel Edge Painter topogram: Posterior bilateral transpedicular screw and ann-marie fixation in the lower lumbar spine w ith interbody spacers and laminectomy defects. Lung bases: Normal heart size. Coronary artery and aortic valve calcification. Respiratory motion art ifact degrades evaluation of the lung bases. Minimal atelectasis or scarring suspected. No focal infi ltrate or nodule at the lung bases. Liver: Congenital hypoplasia of the medial segments of the left hepatic lobe. Normal density. Biliary: No gross biliary ductal dilatation allowing for noncontrast technique. Gallbladder contains gallstones. Pancreas: Mild parenchymal atrophy. Spleen: Normal noncontrast appearance. Adrenal glands: Normal noncontrast appearance. Kidneys and ureters: Bilateral perinephric fat infiltration, nonspecific. Exophytic hypodense lesion arising from the lower pole the left kidney likely cyst. Nonobstructing dominant 7 mm left renal calc ulus again noted. Resolution of prior left hydronephrosis. Mild left pelviectasis. Mild distention of the mid to distal left ureter may represent a flaccid collecting system. Bladder: The bladder contains gas presumably from catheterization. The bladder is under distended martínez iting evaluation. Circumferential bladder wall thickening may be present allowing for underdistention . Pelvic organs: Prostate enlargement likely secondary to benign prostatic hyperplasia. Bowel: The appendix is not visualized. No bowel obstruction. Trace hiatal hernia. Peritoneal cavity: No free fluid or intraperitoneal gas. Lymph nodes: No gross lymphadenopathy allowing for noncontrast technique. Vasculature: Atherosclerosis of the abdominal aorta, which demonstrates ectasia in the infrarenal por tion measuring up to 3.6 cm in diameter. Abdominal wall: Normal. Musculoskeletal: Degenerative changes of the spine. Posterior lumbar fusion hardware in the lower lum bar spine with laminectomy defects. IMPRESSION: 1. Decompressed urinary bladder containing gas presumably from catheterization or instrumentation. B ladder wall thickening may be due to underdistention though this raises concern for cystitis. Correla te with urinalysis. 2. No hydronephrosis. 3. Prostatomegaly. 4. Ectasia of the infrarenal abdominal aorta, which measures 3.6 cm, previously 3.4 cm. This could b e followed with ultrasound if clinically indicated. Electronically signed by: Rafiq Kearney M.D. 09/03/2018 6:38 PM
--- NOTE | 2018-09-03 19:02 | History & Physical Report ---
Date of Service September 03, 2018 Assessment & Plan (1) UTI (lower urinary tract infection): Improving s/p IVF and abx UA as noted, cx pending Likely a complication of procedure WBC elevated Cipro listed in home meds but states he has not been on abx post-op I do not have access to post-op d/c instructions Ceftriaxone given in the ED, will use cipro given dx Cx pending CXR neg for PNA Flu swab pending CTAP neg for abscess (2) Bladder cancer: Recent tumor removal on 09/[address] Conklin Urology c/s pending (3) Hypertension: continue home meds (4) COPD (chronic obstructive pulmonary disease): continue home meds Takes prednisone 5mg QD (5) Hypothyroid: continue home meds (6) Memory loss: Monitor, sitter given short term memory issues (7) DVT prophylaxis: SCDs in case of need for procedure History of Present Illness Primary Care Provider: Rafiq Haney MD 83 y/o M who was brought to the ED by his for c/o AMS. states that at baseline has short term memory loss. She states that he frequently needs redirected. This has been progressive and was occurring prior to his bladder tumor removal on Saturday with Dr. Conklin. Since that time, she feels that his memory is worse. She noted he was seeing things yesterday. He thought his sister was present and she is in the [place]. Today, he could not ambulate well or use his UE well. He did not eat today. He was nauseated but no emesis. Pt states he feels fine at present. He is unable to tell me why he is in the ED, but does remember getting a CT scan. Pt denies fever, SOB, chest pain, abd pain, n/v/c/d, LE pain or swelling. He states he is hungry and his states that he must be feeling better because he would not eat all day. She notes that he is now moving his UE well. Pt had a bladder tumor removal on Saturday with Dr. Conklin. Cipro is listed in home meds, however states that it must have been from a prior use as she was not given any prescriptions post-op on Saturday. Allergies Allergy/AdvReac Type Severity Reaction Status Date / Time clonidine Allergy Severe ANGIOEDEMA-TONGUE Verified 09/03/18 18:35 SWELLS JANEY Inhibitors Allergy Unknown Unknown Verified 09/03/18 18:35 adhesive Allergy Unknown SKIN Verified 09/03/18 18:35 BLISTERING aspirin Allergy Unknown SKIN Verified 09/03/18 18:35 TESTING POSITIVE-RASH hydralazine Allergy Unknown Unknown-PT Verified 09/03/18 18:35 NOT SURE latex Allergy Unknown RASH Verified 09/03/18 18:35 Home Medications Home Medications Medication Instructions Recorded Confirmed Type amlodipine 10 mg PO QAM 04/11/18 09/03/18 History fluticasone-salmeterol [Advair 1 inh INHALATION QAM 04/11/18 09/03/18 History Diskus] garlic 1,000 mg PO QAM 04/11/18 09/03/18 History levothyroxine 88 mcg PO QAM 04/11/18 09/03/18 History losartan 100 mg PO QAM 04/11/18 09/03/18 History potassium chloride 20 meq PO QAM 04/11/18 09/03/18 History prednisone 5 mg PO QAM 04/11/18 09/03/18 History albuterol sulfate [Ventolin HFA] 2 puff INHALATION Q4H PRN 09/03/18 09/03/18 History atorvastatin 20 mg PO DAILY 09/03/18 09/03/18 History cyclobenzaprine 10 mg PO TID PRN 09/03/18 09/03/18 History meloxicam 15 mg PO DAILY 09/03/18 09/03/18 History zaleplon 10 mg PO HS 09/03/18 09/03/18 History Past Med/Surg History Medical History Asthma BPH (benign prostatic hyperplasia) Bigeminy HX PER RECORDS Bladder tumor CAD (coronary artery disease) NON-OCCLUSIVE Chronic obstructive pulmonary disease STABLE ON CHRONIC PREDNISONE 5MG DAILY GERD (gastroesophageal reflux disease) History of bladder cancer Hypertension Hypothyroidism Surgical History Fusion of spine CERVICAL AND LUMBAR History of appendectomy History of biopsy of bladder History of bladder surgery TURBT= 10/14/17= LMA#5 History of cardiac cath 2008= NO STENTS History of colonoscopy History of cystoscopy Family History Father Heart attack Social History Preferred Language: [place]de[place] Beliefs That Will Affect Care: None Current Living Situation: Spouse Feels Safe at Home: Yes Smoking Status: Never smoker Hx Alcohol Use: Yes (a few times a year on birthdays) Hx Substance Use: No Review of Systems Pertinent positives and negatives reviewed in HPI--all others negative Physical Exam Vital Signs (Past 24 Hours): Last Vital Signs Temp 37.9 C H 09/03/18 16:53 Pulse 71 09/03/18 17:50 Resp 24 09/03/18 17:50 BP 148/100 H 09/03/18 17:50 Pulse Ox 98 09/03/18 17:50 Constitutional: WD/WN, vitals as above Eyes: normal visual arndt by confrontation and + anicteric sclerae Neck: normal visual inspection and trachea midline Respiratory: normal respiratory effort, lungs clear to auscultation Cardiovascular: Rate/Rhythm: regular rate and regular rhythm Gastrointestinal (Abdomen): Inspection/Auscultation: abdomen not distended Percussion/Palpation: abdomen soft; abdomen nontender guarding during abd exam but states no pain. "But I am expecting it to." Musculoskeletal: Head/Neck/Chest: normocephalic and head atraumatic negative for edema, peripheral pulses intact Skin: no rashes, warm and dry Neurologic: awake and + confused (unable to tell me why he is in the ED) Speech / Cognition: normal speech Psychiatric: Orientation: alert, oriented to person and oriented to place Results & Data Diagnostic Findings CXR: neg for acute CT head: neg for acute CT AP: bladder wall thickening c/w cystitis, no signs of abscess Code Status & VTE Plan Code Status DNR/DNI per . Living will was made out about 10 yrs ago prior to memory loss VTE Prophylaxis Plan VTE Prophylaxis will be ordered: Yes
[2018-09-03] MEDS ORDERED: MAGNESIUM HYDROXIDE SUSP 30 ML UDC PO PRN (20:36)
[2018-09-03] MEDS ORDERED: ONDANSETRON INJ 2 MG/ML 2 ML VIAL IV PRN (20:36)
[2018-09-03] MEDS ORDERED: ALBUTEROL HFA 8 GM INHALER INH PRN (20:36)
[2018-09-03] MEDS ORDERED: ACETAMINOPHEN 325 MG TAB PO PRN (20:36)
[2018-09-03] MEDS ORDERED: CYCLOBENZAPRINE HCL 10 MG TAB PO PRN (20:36)
[2018-09-03] MEDS: CIPROFLOXACIN 400 MG/200 ML BAG IV SCH (22:14)
[2018-09-03] MEDS: ZALEPLON 5 MG CAPSULE PO SCH (22:14)
--- NOTE | 2018-09-03 23:08 | Emergency Department Note ---
Entered by Berny Price acting as a scribe for Dimitri Stein History of Present Illness General Chief complaint: Illness Stated complaint: BLADDER INFECTION Time Seen by Provider: 09/03/18 16:40 Source: patient and family History of Present Illness Onset (ago): day(s) 2 Location: head (global) Pain Consistency: + other (persistent) Quality: + other (confusion) Exacerbated By: + other (started after surgery for bladder cancer) Associated symptoms: + chest pain, + shortness of breath and + other (abdominal pain) The patient is an 83 year old male who presents to the Emergency Room with persistent confusion beginning two days ago. Family reports that the patient had surgery for his bladder cancer two days ago performed by Dr. [facility], and since that time he has appeared very confused. The patient reports that he feels very fatigued. He states that he was experiencing some shortness of breath and chest pain earlier, but not currently. He also notes that he was experiencing some abdominal pain this morning. Family states that he has not had hematuria. She notes that the patient has a history of hypertension, COPD, and chronic back pain from prior operations. Home Medications Home Medications Medication Instructions Recorded Confirmed Type amlodipine 10 mg PO QAM 04/11/18 09/03/18 History fluticasone-salmeterol [Advair 1 inh INHALATION QAM 04/11/18 09/03/18 History Diskus] garlic 1,000 mg PO QAM 04/11/18 09/03/18 History levothyroxine 88 mcg PO QAM 04/11/18 09/03/18 History losartan 100 mg PO QAM 04/11/18 09/03/18 History potassium chloride 20 meq PO QAM 04/11/18 09/03/18 History prednisone 5 mg PO QAM 04/11/18 09/03/18 History albuterol sulfate [Ventolin HFA] 2 puff INHALATION Q4H PRN 09/03/18 09/03/18 History atorvastatin 20 mg PO DAILY 09/03/18 09/03/18 History cyclobenzaprine 10 mg PO TID PRN 09/03/18 09/03/18 History meloxicam 15 mg PO DAILY 09/03/18 09/03/18 History zaleplon 10 mg PO HS 09/03/18 09/03/18 History Allergies Allergy/AdvReac Type Severity Reaction Status Date / Time clonidine Allergy Severe ANGIOEDEMA-TONGUE Verified 09/03/18 18:35 SWELLS JANEY Inhibitors Allergy Unknown Unknown Verified 09/03/18 18:35 adhesive Allergy Unknown SKIN Verified 09/03/18 18:35 BLISTERING aspirin Allergy Unknown SKIN Verified 09/03/18 18:35 TESTING POSITIVE-RASH hydralazine Allergy Unknown Unknown-PT Verified 09/03/18 18:35 NOT SURE latex Allergy Unknown RASH Verified 09/03/18 18:35 Past Med/Surg History Medical History Asthma BPH (benign prostatic hyperplasia) Bigeminy HX PER RECORDS Bladder tumor CAD (coronary artery disease) NON-OCCLUSIVE Chronic obstructive pulmonary disease STABLE ON CHRONIC PREDNISONE 5MG DAILY GERD (gastroesophageal reflux disease) History of bladder cancer Hypertension Hypothyroidism Surgical History Fusion of spine CERVICAL AND LUMBAR History of appendectomy History of biopsy of bladder History of bladder surgery TURBT= 10/14/17= LMA#5 History of cardiac cath 2009= NO STENTS History of colonoscopy History of cystoscopy Social History Preferred Language: Tongan Communication Ability: Effective 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 and A total of 10 systems reviewed and were otherwise negative Physical Exam Vital Signs Vital Signs - 24 hr 09/03/18 15:30 09/03/18 16:36 09/03/18 16:53 Temperature 36.7 C 37.9 C H Temperature Source Oral Rectal Sepsis Recent Fever Within 48 Hours No Sepsis New/Unexplained Change in Mental Status No Sepsis Action Taken by Nursing No Action Required Pulse Rate 55 L Pulse Rate [Right Finger] 113 H Respiratory Rate 20 26 H Respiratory Effort / Characteristics Non-Labored Spontaneous Blood Pressure 165/93 H Blood Pressure [Right Arm] 182/135 H Blood Pressure Mean 117 Blood Pressure Mean [Right Arm] 150 Blood Pressure Position Sitting Pulse Oximetry 92 92 Oxygen Delivery Method Room Air Room Air 09/03/18 17:50 09/03/18 19:26 09/03/18 19:30 Temperature 37.3 C Temperature Source Rectal Sepsis Recent Fever Within 48 Hours Sepsis New/Unexplained Change in Mental Status Sepsis Action Taken by Nursing Pulse Rate Pulse Rate [Right Finger] 71 103 H Respiratory Rate 24 20 Respiratory Effort / Characteristics Blood Pressure Blood Pressure [Right Arm] 148/100 H 172/108 H Blood Pressure Mean Blood Pressure Mean [Right Arm] 116 129 Blood Pressure Position Pulse Oximetry 98 94 Oxygen Delivery Method Room Air 09/03/18 20:15 Temperature 37.1 C Temperature Source Oral Sepsis Recent Fever Within 48 Hours Sepsis New/Unexplained Change in Mental Status Sepsis Action Taken by Nursing Pulse Rate Pulse Rate [Right Finger] 108 H Respiratory Rate 24 Respiratory Effort / Characteristics SOB on Exertion Blood Pressure Blood Pressure [Right Arm] 166/104 H Blood Pressure Mean Blood Pressure Mean [Right Arm] 124 Blood Pressure Position Pulse Oximetry 95 Oxygen Delivery Method Room Air GENERAL: He is oriented to place and time. He appears well-developed and well- nourished. He does not appear distressed. HENT: Exam performed. Head: Normocephalic and atraumatic. Right Ear: External ear normal. No mastoid tenderness. Left Ear: External ear normal. No mastoid tenderness. Mouth/Throat: The oropharynx is clear and moist. No trismus in the jaw. No dental abscesses or uvula swelling. No oropharyngeal exudate or tonsillar abscesses. EYES: Conjunctivae and EOM are normal. Pupils are equal, round, and reactive to light. Right eye exhibits no discharge. Left eye exhibits no discharge. No scleral icterus. NECK: Normal range of motion. Neck supple. No JVD present. No spinous process tenderness present. No carotid bruit present. No rigidity. No tracheal deviation and normal range of motion present. No Brudzinski's sign and no Kernig's sign noted. CV: Tachycardic rate, regular rhythm, normal heart sounds and intact distal p ulses. There is no peripheral edema. Palpable radial pulses bue. PULM/CHEST: Effort normal. No respiratory distress. No stridor. He has diffuse expiratory wheezes. He has no rales. Chest Wall: He exhibits no tenderness. ABD: The abdomen is soft. Bowel sounds are normal. He has no distension. No mass is present. There is no tenderness. There is no rebound, no guarding, no Garcia's sign and no tenderness at McBurney's point. Rovsig negative. : He is uncircumcised. There is no blood or discharge from the urethral meatus. There are no obvious lesions over the genitalia. MUSC/SKEL: Normal range of motion. There is no peripheral edema, tenderness or deformity. LYMPH: No cervical adenopathy. NEURO: He is alert and oriented x2. He has normal strength. No cranial nerve deficit or sensory deficit. Coordination and gait normal. GCS eye subscore is 4. GCS verbal subscore is 5. GCS motor subscore is 6. cerbellar tests wnl. SKIN: Skin is warm and dry. He is not diaphoretic. PSYCH: He has a normal mood and affect. His behavior is normal. Judgment and thought content normal. Course 1641: Past medical records reviewed. The patient was evaluated in room A9A, and a complete history and physical examination were performed. 1822: The patients labs show leukocytosis of 38.5. Lactic acid levels are within normal limits. Urinalysis appears to be the source of infection. CTs are within normal limits. Patient will be admitted to the hospital for UTI causing altered mental status. Rocephin 1 g IV piggyback given in the emergency department. I consulted Dr. Wilkerson [facility] Hospitalist. She will reevaluate the patient for hospitalization. She requests that urology is consulted. Urology was paged. 1849: I consulted Dr. [facility]. He recommends placement of a urinary catheter. He states that he will see the patient when he is admitted on the floor. Consultations Consultation #1: I consulted Dr. Wilkerson [facility] Hospitalist. She will reevaluate the patient for hospitalization. She requests that urology is consulted. Urology was paged. Time: 18:24 Consultation #2: I consulted Dr. [facility]. He recommends placement of a urinary catheter. He states that he will see the patient when he is admitted on the floor. Time: 18:49 Administered Medications Sodium Chloride (Nss 1000ml) 1,000 mls @ 125 mls/hr IV .Q8H SUSHMA Stop: 10/03/18 16:59 Last Admin: 09/03/18 20:53 Dose: 125 mls/hr Documented by: [id number] Infusion: 09/03/18 20:52 Dose: 125 mls/hr Documented by: [id number] Admin: 09/03/18 17:39 Dose: 125 mls/hr Documented by: [id number] Ciprofloxacin (Cipro) 400 mg in 200 mls @ 100 mls/hr IV Q12H SUSHMA Stop: 09/13/18 21:59 Last Admin: 09/03/18 22:14 Dose: 100 mls/hr Documented by: [id number] Zaleplon (Sonata) 10 mg PO HS SUSHMA Stop: 10/03/18 20:59 Last Admin: 09/03/18 22:14 Dose: 10 mg Documented by: [id number] Discontinued Medications Acetaminophen (Tylenol) 650 mg IN NOW STA Stop: 09/03/18 16:54 Last Admin: 09/03/18 17:39 Dose: 650 mg Documented by: [id number] Albuterol (Duoneb) 3 ml NEB NOW STA Stop: 09/03/18 16:54 Last Admin: 09/03/18 17:39 Dose: 3 ml Documented by: [id number] Ceftriaxone Sodium (Rocephin) 1,000 mg in 50 mls @ 100 mls/hr IV NOW STA Stop: 09/03/18 18:50 Last Infusion: 09/03/18 20:11 Dose: 0 mls/hr Documented by: [id number] Admin: 09/03/18 18:34 Dose: 100 mls/hr Documented by: [id number] Medical Decision Making Medical Records Attestation: I reviewed the patient's medical records. Home Medications Current Medication List: was personally reviewed by me Laboratory Data Attestation: I reviewed the patient's lab results. Result diagrams: 09/03/18 17:08 09/03/18 17:08 Lab Results 09/03/18 09/03/18 09/03/18 Range/Units 17:08 17:08 17:08 WBC 38.57 H* (4.8-10.8) K/uL RBC 5.60 (4.7-6.1) M/uL Hgb 17.1 (14.0-18.0) g/dL Hct 47.9 (42-52) % MCV 85.5 (80-100) fL MCH 30.5 (25-34) pg MCHC 35.7 (32-36) g/dL RDW Std Deviation 46.7 H (36.4-46.3) fL RDW Coeff of Ray 14.9 H (11.5-14.5) % Plt Count 262 (130-400) K/uL MPV 11.9 H (7.4-10.4) fL Neutrophils % (Manual) 82.0 % Lymphocytes % (Manual) 4.0 % Monocytes % (Manual) 14.0 % Neutrophils # (Manual) 31.63 H (1.4-6.5) K/uL Total Absolute Neuts 31.63 H (1.4-6.5) K/uL Lymphocytes # (Manual) 1.54 (1.2-3.4) K/uL Total Abs Lymphocytes 1.54 (1.2-3.4) K/uL Monocytes # (Manual) 5.40 H (0.11-0.59) K/uL RBC Morphology Unremarkable PT 10.9 (9.0-12.0) Seconds INR 1.1 (0.9-1.1) APTT 25.4 (21.0-31.0) Seconds PTT Ratio 0.9 VBG pH (7.36-7.41) VBG pCO2 (38-50) mmHg VBG pO2 mmHg VBG HCO3 mmol/L VBG O2 Saturation % VBG Base Excess mEq/L Barometric Pressure mm/Hg Sodium 134 L (136-145) mmol/L Potassium 4.2 (3.5-5.1) mmol/L Chloride 101 (98-107) mmol/L Carbon Dioxide 24 (21-32) mmol/L Anion Gap 9.0 (3-11) BUN 18 (7-18) mg/dl Creatinine 1.52 H (0.6-1.4) mg/dl Est Cr Clr Drug Dosing 41.5 ml/min Est GFR ( Amer) 49.1 Est GFR (Non-Af Amer) 42.4 BUN/Creatinine Ratio 11.7 (10-20) Glucose 109 H (70-99) mg/dl Lactate (0.4-2.0) mmol/L Calcium 8.6 (8.5-10.1) mg/dl Magnesium 1.9 (1.8-2.4) mg/dl Total Bilirubin 2.1 H (0.2-1) mg/dl Direct Bilirubin (0-0.2) mg/dl AST 19 (15-37) U/L ALT 26 (12-78) U/L Alkaline Phosphatase 86 (45-117) U/L Troponin I < 0.015 (0-0.045) ng/ml Total Protein 8.1 (6.4-8.2) gm/dl Albumin 4.0 (3.4-5.0) gm/dl Lipase 72 L (73-393) U/L Specimen Hemolysis Urine Color Urine Appearance (Clear) Urine pH (4.5-7.5) Ur Specific [place] (1.000-1.030) Urine Protein (Negative) Urine Glucose (UA) (Negative) Urine Ketones (Negative) Urine Blood (Negative) Urine Nitrite (Negative) Urine Bilirubin (Negative) Urine Urobilinogen (Negative) Ur Leukocyte Esterase (Negative) Urine WBC (Auto) (0-5) /hpf Urine RBC (Auto) (0-4) /hpf U Hyaline Cast (Auto) (0-5) /lpf U Epithel Cells (Auto) (0-5) /lpf Urine Bacteria (Auto) (Negative) Influenza Type A (PCR) (Neg) Influenza Type B (PCR) (Neg) 09/03/18 09/03/18 09/03/18 Range/Units 17:08 17:10 17:22 WBC (4.8-10.8) K/uL RBC (4.7-6.1) M/uL Hgb (14.0-18.0) g/dL Hct (42-52) % MCV (80-100) fL MCH (25-34) pg MCHC (32-36) g/dL RDW Std Deviation (36.4-46.3) fL RDW Coeff of Ray (11.5-14.5) % Plt Count (130-400) K/uL MPV (7.4-10.4) fL Neutrophils % (Manual) % Lymphocytes % (Manual) % Monocytes % (Manual) % Neutrophils # (Manual) (1.4-6.5) K/uL Total Absolute Neuts (1.4-6.5) K/uL Lymphocytes # (Manual) (1.2-3.4) K/uL Total Abs Lymphocytes (1.2-3.4) K/uL Monocytes # (Manual) (0.11-0.59) K/uL RBC Morphology PT (9.0-12.0) Seconds INR (0.9-1.1) APTT (21.0-31.0) Seconds PTT Ratio VBG pH 7.47 H (7.36-7.41) VBG pCO2 32 L (38-50) mmHg VBG pO2 48 mmHg VBG HCO3 23 mmol/L VBG O2 Saturation 87.2 % VBG Base Excess 0.2 mEq/L Barometric Pressure 735.3 mm/Hg Sodium (136-145) mmol/L Potassium (3.5-5.1) mmol/L Chloride (98-107) mmol/L Carbon Dioxide (21-32) mmol/L Anion Gap (3-11) BUN (7-18) mg/dl Creatinine (0.6-1.4) mg/dl Est Cr Clr Drug Dosing ml/min Est GFR ( Amer) Est GFR (Non-Af Amer) BUN/Creatinine Ratio (10-20) Glucose (70-99) mg/dl Lactate 1.6 (0.4-2.0) mmol/L Calcium (8.5-10.1) mg/dl Magnesium (1.8-2.4) mg/dl Total Bilirubin (0.2-1) mg/dl Direct Bilirubin (0-0.2) mg/dl AST (15-37) U/L ALT (12-78) U/L Alkaline Phosphatase (45-117) U/L Troponin I (0-0.045) ng/ml Total Protein (6.4-8.2) gm/dl Albumin (3.4-5.0) gm/dl Lipase (73-393) U/L Specimen Hemolysis Urine Color Urine Appearance (Clear) Urine pH (4.5-7.5) Ur Specific [place] (1.000-1.030) Urine Protein (Negative) Urine Glucose (UA) (Negative) Urine Ketones (Negative) Urine Blood (Negative) Urine Nitrite (Negative) Urine Bilirubin (Negative) Urine Urobilinogen (Negative) Ur Leukocyte Esterase (Negative) Urine WBC (Auto) (0-5) /hpf Urine RBC (Auto) (0-4) /hpf U Hyaline Cast (Auto) (0-5) /lpf U Epithel Cells (Auto) (0-5) /lpf Urine Bacteria (Auto) (Negative) Influenza Type A (PCR) Neg for Influ A (Neg) Influenza Type B (PCR) Neg for Influ B (Neg) 09/03/18 Range/Units Unknown WBC (4.8-10.8) K/uL RBC (4.7-6.1) M/uL Hgb (14.0-18.0) g/dL Hct (42-52) % MCV (80-100) fL MCH (25-34) pg MCHC (32-36) g/dL RDW Std Deviation (36.4-46.3) fL RDW Coeff of Ray (11.5-14.5) % Plt Count (130-400) K/uL MPV (7.4-10.4) fL Neutrophils % (Manual) % Lymphocytes % (Manual) % Monocytes % (Manual) % Neutrophils # (Manual) (1.4-6.5) K/uL Total Absolute Neuts (1.4-6.5) K/uL Lymphocytes # (Manual) (1.2-3.4) K/uL Total Abs Lymphocytes (1.2-3.4) K/uL Monocytes # (Manual) (0.11-0.59) K/uL RBC Morphology PT (9.0-12.0) Seconds INR (0.9-1.1) APTT (21.0-31.0) Seconds PTT Ratio VBG pH (7.36-7.41) VBG pCO2 (38-50) mmHg VBG pO2 mmHg VBG HCO3 mmol/L VBG O2 Saturation % VBG Base Excess mEq/L Barometric Pressure mm/Hg Sodium (136-145) mmol/L Potassium (3.5-5.1) mmol/L Chloride (98-107) mmol/L Carbon Dioxide (21-32) mmol/L Anion Gap (3-11) BUN (7-18) mg/dl Creatinine (0.6-1.4) mg/dl Est Cr Clr Drug Dosing ml/min Est GFR ( Amer) Est GFR (Non-Af Amer) BUN/Creatinine Ratio (10-20) Glucose (70-99) mg/dl Lactate (0.4-2.0) mmol/L Calcium (8.5-10.1) mg/dl Magnesium (1.8-2.4) mg/dl Total Bilirubin (0.2-1) mg/dl Direct Bilirubin (0-0.2) mg/dl AST (15-37) U/L ALT (12-78) U/L Alkaline Phosphatase (45-117) U/L Troponin I (0-0.045) ng/ml Total Protein (6.4-8.2) gm/dl Albumin (3.4-5.0) gm/dl Lipase (73-393) U/L Specimen Hemolysis Urine Color Dark Yellow Urine Appearance Turbid H (Clear) Urine pH 8.5 H (4.5-7.5) Ur Specific [place] 1.020 (1.000-1.030) Urine Protein 2+ H (Negative) Urine Glucose (UA) Negative (Negative) Urine Ketones Trace H (Negative) Urine Blood 2+ H (Negative) Urine Nitrite Positive H (Negative) Urine Bilirubin Negative (Negative) Urine Urobilinogen Negative (Negative) Ur Leukocyte Esterase 3+ H (Negative) Urine WBC (Auto) >30 H (0-5) /hpf Urine RBC (Auto) >30 H (0-4) /hpf U Hyaline Cast (Auto) 1-5 (0-5) /lpf U Epithel Cells (Auto) 5-10 H (0-5) /lpf Urine Bacteria (Auto) 2+ H (Negative) Influenza Type A (PCR) (Neg) Influenza Type B (PCR) (Neg) Imaging Data Radiologist's Impression: Radiology results as stated below per my review and the radiologist's interpretation: CT abd pelvis wo con CLINICAL HISTORY: 83 years-old Male presenting with post op bladder surg abdominal pain/fever. TECHNIQUE: Multidetector CT of the abdomen and pelvis was performed without the use of intravenous contrast. IV contrast: None. One or more dose lowering techniques were used consistent with the principles of ALARA (as low as reasonably achievable), including automatic exposure control, mA or kV adjustment to individual patient size, and/or use of iterative reconstruction. COMPARISON: 06/10/2017. CT DOSE (mGy.cm): The estimated cumulative dose is 713.61 mGy.cm. FINDINGS: Manager Cosmetic topogram: Posterior bilateral transpedicular screw and ann-marie fixation in the lower lumbar spine with interbody spacers and laminectomy defects. Lung bases: Normal heart size. Coronary artery and aortic valve calcification. Respiratory motion artifact degrades evaluation of the lung bases. Minimal atelectasis or scarring suspected. No focal infiltrate or nodule at the lung bases. Liver: Congenital hypoplasia of the medial segments of the left hepatic lobe. Normal density. Biliary: No gross biliary ductal dilatation allowing for noncontrast technique. Gallbladder contains gallstones. Pancreas: Mild parenchymal atrophy. Spleen: Normal noncontrast appearance. Adrenal glands: Normal noncontrast appearance. Kidneys and ureters: Bilateral perinephric fat infiltration, nonspecific. Exophytic hypodense lesion arising from the lower pole the left kidney likely cyst. Nonobstructing dominant 7 mm left renal calculus again noted. Resolution of prior left hydronephrosis. Mild left pelviectasis. Mild distention of the mid to distal left ureter may represent a flaccid collecting system. Bladder: The bladder contains gas presumably from catheterization. The bladder is under distended limiting evaluation. Circumferential bladder wall thickening may be present allowing for underdistention. Pelvic organs: Prostate enlargement likely secondary to benign prostatic hyperplasia. Bowel: The appendix is not visualized. No bowel obstruction. Trace hiatal hernia. Peritoneal cavity: No free fluid or intraperitoneal gas. Lymph nodes: No gross lymphadenopathy allowing for noncontrast technique. Vasculature: Atherosclerosis of the abdominal aorta, which demonstrates ectasia in the infrarenal portion measuring up to 3.6 cm in diameter. Abdominal wall: Normal. Musculoskeletal: Degenerative changes of the spine. Posterior lumbar fusion hardware in the lower lumbar spine with laminectomy defects. IMPRESSION: 1. Decompressed urinary bladder containing gas presumably from catheterization or instrumentation. Bladder wall thickening may be due to underdistention though this raises concern for cystitis. Correlate with urinalysis. 2. No hydronephrosis. 3. Prostatomegaly. 4. Ectasia of the infrarenal abdominal aorta, which measures 3.6 cm, previously 3.4 cm. This could be followed with ultrasound if clinically indicated. Electronically signed by: Rafiq Kearney M.D. 09/03/2018 6:38 PM XR chest 1V portable HISTORY: post op fever COMPARISON: Chest 11/10/2017. FINDINGS: Cervical spinal fusion hardware is again noted. The lungs are clear. No pleural effusions. No pneumothorax. Old, healed right posterior rib fractures. The heart remains normal in size. IMPRESSION: No significant change compared to the prior study. No acute process. Electronically signed by: Magen Chairez M.D. 09/03/2018 5:[address] head/brain wo con CLINICAL HISTORY: 83 years-old Male presenting with ams. TECHNIQUE: Multidetector CT imaging of the head was performed without the use of intravenous contrast. IV contrast: None. One or more dose lowering techniques were used consistent with the principles of ALARA (as low as reasonably achievable), including automatic exposure control, mA or kV adjustment to individual patient size, and/or use of iterative reconstruction. COMPARISON: 02/01/2012. CT DOSE (mGy.cm): The estimated cumulative dose is 1051.80 mGy.cm. FINDINGS: Manager Cosmetic topogram: The patient is edentulous. Ventricles and sulci normal in size. No hemorrhage. Periventricular and subcortical white matter hypoattenuation, nonspecific but likely indicative of chronic small vessel ischemic change. No acute territorial infarct. No mass effect or midline shift. No extra-axial fluid collection. Paranasal sinuses and mastoid air cells clear. Calvarium intact. Intracranial atherosclerosis noted. IMPRESSION: 1. Chronic small vessel ischemic change. No acute intracranial abnormality. Electronically signed by: Rafiq Kearney M.D. 09/03/2018 6:19 PM ECG Data Attestation: I personally reviewed and interpreted this ECG as follows: Indication: SOB/dyspnea Rate (beats per minute): 109 Rhythm: sinus tachycardia Findings: + other (IN interval is 204; QRS and QTc intervals are within normal limits), + 1st degree AV block and + PVC; no ST depression and no ST elevation Blood Pressure Blood Pressure Findings: Elevated blood pressure Blood Pressure Disposition: further management by hospitalist [facility] Narrative 1641: Past medical records reviewed. The patient was evaluated in room A9A, and a complete history and physical examination were performed. 1822: The patients labs show leukocytosis of 38.5. Lactic acid levels are within normal limits. Urinalysis appears to be the source of infection. CTs are within normal limits. Patient will be admitted to the hospital for UTI causing altered mental status. Rocephin 1 g IV piggyback given in the emergency department. I consulted Dr. Wilkerson [facility] Hospitalist. She will reevaluate the patient for hospitalization. She requests that urology is consulted. Urology was paged. 1849: I consulted Dr. [facility]. He recommends placement of a urinary catheter. He states that he will see the patient when he is admitted on the floor. Impression & Plan Sepsis due to urinary tract infection Discharge Plan Visit Data *Final* Discharge Date/Time: 09/03/18 20:09 Chief Complaint: Illness Stated Complaint: BLADDER INFECTION ED Provider: Dimitri Stein Discharge Problem: Sepsis due to urinary tract infection Patient Disposition: Admitted As Inpatient Discharge Instructions Interventions: ED Discharge Assessment Last Done: 09/03/18 20:09 The scribe's documentation has been prepared under my direction and personally reviewed by me in its entirety. I confirm that the note above accurately reflects all work, treatment, procedures, and medical decision making performed by me.
[2018-09-04] MEDS: LEVOTHYROXINE SODIUM 88 MCG TABLET PO SCH (06:00)
[2018-09-04] MEDS: SODIUM CHLORIDE 0.9% 1000ML 1,000 ML IV SCH ×3 (06:01→22:12)
[2018-09-04] MEDS: AMLODIPINE BESYLATE 5 MG TAB PO SCH (07:52)
[2018-09-04] MEDS: MELOXICAM 7.5 MG TAB PO SCH (07:53)
[2018-09-04] MEDS: POTASSIUM CHLORIDE 20 MEQ TABCR PO SCH (07:53)
[2018-09-04] MEDS: predniSONE 5 MG TAB PO SCH (07:53)
[2018-09-04] MEDS: ATORVASTATIN 20 MG TAB PO SCH (07:53)
[2018-09-04] MEDS: FLUTICASONE/SALMETEROL 250/50 (ADVAIR) 14 PUFF/1 INHALER INH SCH (07:53)
[2018-09-04] MEDS: LOSARTAN POTASSIUM 50 MG TAB PO SCH (07:53)
[2018-09-04] MEDS ORDERED: PNEUMOCOCCAL ADMINISTRATION CHARGE ONE (08:30)
[2018-09-04] MEDS ORDERED: INFLUENZA VACCINE HIGH DOSE 65+ 0.5 ML SYR IM ONE (08:30)
[2018-09-04] MEDS ORDERED: PNEUMOCOCCAL POLYSACCHARIDES 25 MCG/0.5 ML VIAL/SYR IM ONE (08:30)
[2018-09-04] MEDS ORDERED: INFLUENZA ADMINISTRATION CHARGE ONE (08:30)
[2018-09-04] MEDS ORDERED: NON-FORMULARY MEDICATION (Garlic 1,000 MG) PO SCH (09:00)
[2018-09-04 09:11] LABS: Hematocrit (blood only) 41.5 % (42-52); Hemoglobin 14.6 g/dL (14.0-18.0); Mean Corpuscular Hgb Conc 35.2 g/dL (32-36); Mean Corpuscular Volume 85.6 fL (80-100); Mean Platelet Volume 10.8 fL (7.4-10.4); Platelet Count 232 K/uL (130-400); RDW Standard Deviation 47.2 fL (36.4-46.3); Red Blood Count 4.85 M/uL (4.7-6.1); White Blood Count 33.79 K/uL (4.8-10.8)
[2018-09-04 09:25] LABS: BUN Creatinine Ratio 13.4 (10-20); Calcium 8.1 mg/dl (8.5-10.1); Creatinine Clr Calc Pharmacy 54.1 ml/min; Est GFR (African American) 68.8; Est GFR (Non-African American) 59.4; Potassium 3.8 mmol/L (3.5-5.1)
[2018-09-04 09:52] LABS: Basophils # (auto) 0.04 K/uL (0-0.2); Basophils % (auto) 0.1 %; Eosinophils # (auto) 0.13 K/uL (0-0.5); Eosinophils % (auto) 0.4 %; Immature Granulocytes # (auto) 0.21 K/uL (0.00-0.02); Immature Granulocytes % (auto) 0.6 %; Lymphocytes # (auto) 2.56 K/uL (1.2-3.4); Lymphocytes % (auto) 7.6 %; Monocytes # (auto) 4.23 K/uL (0.11-0.59); Monocytes % (auto) 12.5 %; Neutrophils # (auto) 26.62 K/uL (1.4-6.5); Neutrophils % (auto) 78.8 %
[2018-09-04] MEDS: CIPROFLOXACIN 400 MG/200 ML BAG IV SCH ×2 (10:24→22:13)
--- NOTE | 2018-09-04 15:08 | Hospitalist Progress Note ---
Date of Service September 04, 2018 Assessment & Plan (1) Sepsis: - Presented with leukocytosis, tachycardia, fevers with altered mental status likely related to UTI; Lactate level was 1.6. - On IV fluids at 125 cc/hr. - Influenza by PCR was negative. - Blood cultures pending; UC + for gram negative bacilli. - CT A/P showed decompressed urinary bladder, otherwise negative. - CXR negative. - Treatment with IV abx as noted below. (2) UTI (lower urinary tract infection): - U/a positive; UC positive for >100K colonies gram negative bacilli. - Likely related to recent urology procedure. - Continue Ciprofloxacin IV BID for empiric coverage. - NS at 125 cc/hr. (3) Acute encephalopathy: - Related to acute infection. - Pt. has chronic short term memory loss; had acute changes in mental status starting Saturday. - CT head was negative on admission. (4) Acute kidney injury: - Creatinine was 1.52 on admission, likely related to acute dehydration and UTI. - Improved back to baseline with IV fluids. - Monitor qAM. (5) CKD (chronic kidney disease), stage III: - Renally dose all meds. (6) Bladder cancer: - Recent tumor removal by Dr. Conklin. - Urology consult pending. (7) Hypertension: - Continue Amlodipine 10 mg qAM and Losartan 100 mg qAM. (8) COPD (chronic obstructive pulmonary disease): - Continue home Advair BID and Prednisone 5 mg qAM. - Ventolin q4hr prn. (9) Hypothyroid: - Continue home Synthroid 88 mcg daily. - Most recent TSH was 1.5 in October 2017; will repeat in the AM. (10) Hyperlipidemia: - Continue statin as prescribed. (11) Memory loss: - Has short term memory loss issues per . (12) Leukocytosis: - WBC increased to 33.79, likely related to acute infection. - Monitor qAM. (13) DVT prophylaxis: - SCDs; hold pharmacologic ppx for possible procedure. Dispo: Med/surg for treatment of UTI/Sepsis with IV abx and IV fluids. Supervising Physician Co-Signing Physician Notes Attending Attestation- Chart reviewed, care plan d/w ADAM Dee in detail. 83yo male with sepsis 2nd to UTI. This is in the setting of bladder cancer and recent surgery for such. Would consider this UTI complicated since he just had urological surgery. Cont IV abx and supportive care. Follow cultures. Catrachito Uribe MD Subjective Patient and his were both present for rounds today. Confusion is now improved overall. He complains of suprapubic pain. Dysuria is now improved. Denies fever/chills. His reports he has had issues with short term memory loss over the last few years but did develop acute confusion starting Saturday. Review of Systems All systems reviewed & are unremarkable except as noted in HPI & below Constitutional: no fever, no chills, no fatigue, no weakness and no anorexia Respiratory: no cough and no dyspnea Cardiovascular: no chest pain, no palpitations, no syncope and no edema Gastrointestinal: no abdominal pain, no bloating, no nausea, no vomiting, no constipation and no diarrhea/loose stools Genitourinary (Male): + dysuria; no difficulty urinating and no urinary frequency Musculoskeletal: no joint pain Allergy / Immunological: no rash Physical Exam Vital Signs (Past 24 Hours): Last Vital Signs Temp 36.2 C L 09/04/18 07:00 Pulse 93 H 09/04/18 07:00 Resp 20 09/04/18 07:00 BP 154/90 H 09/04/18 13:00 Pulse Ox 95 09/04/18 07:00 Physical Exam: General: Resting comfortably in no apparent distress; A&OX3 HEENT: NC/AT; PERRLA with EOMI; [place] conjunctiva, MMM. Neck: Supple and nontender Cardiac: RRR w/o murmurs, gallops or rubs Lungs: CTA bilaterally; No rhonchi, wheezing, or rales Abdomen: Bowel normoactive X 4; Tenderness to palpation over suprapubic region. Extremities: Warm. No edema present Neuro: No focal weakness Skin: No rash Results & Data Laboratory Results 09/04/18 09/04/18 09/03/18 Range/Units 08:27 08:27 Unknown WBC 33.79 H* (4.8-10.8) K/uL RBC 4.85 (4.7-6.1) M/uL Hgb 14.6 (14.0-18.0) g/dL Hct 41.5 L (42-52) % MCV 85.6 (80-100) fL MCH 30.1 (25-34) pg MCHC 35.2 (32-36) g/dL RDW Std Deviation 47.2 H (36.4-46.3) fL RDW Coeff of Ray 15.0 H (11.5-14.5) % Plt Count 232 (130-400) K/uL MPV 10.8 H (7.4-10.4) fL Immature Gran % (Auto) 0.6 % Neut % (Auto) 78.8 % Lymph % (Auto) 7.6 % Wilkes % (Auto) 12.5 % Eos % (Auto) 0.4 % Baso % (Auto) 0.1 % Immature Gran # (Auto) 0.21 H (0.00-0.02) K/uL Neut # (Auto) 26.62 H (1.4-6.5) K/uL Lymph # (Auto) 2.56 (1.2-3.4) K/uL Wilkes # (Auto) 4.23 H (0.11-0.59) K/uL Eos # (Auto) 0.13 (0-0.5) K/uL Baso # (Auto) 0.04 (0-0.2) K/uL Neutrophils % (Manual) % Lymphocytes % (Manual) % Monocytes % (Manual) % Neutrophils # (Manual) (1.4-6.5) K/uL Total Absolute Neuts (1.4-6.5) K/uL Lymphocytes # (Manual) (1.2-3.4) K/uL Total Abs Lymphocytes (1.2-3.4) K/uL Monocytes # (Manual) (0.11-0.59) K/uL RBC Morphology PT (9.0-12.0) Seconds INR (0.9-1.1) APTT (21.0-31.0) Seconds PTT Ratio VBG pH (7.36-7.41) VBG pCO2 (38-50) mmHg VBG pO2 mmHg VBG HCO3 mmol/L VBG O2 Saturation % VBG Base Excess mEq/L Barometric Pressure mm/Hg Sodium 140 (136-145) mmol/L Potassium 3.8 (3.5-5.1) mmol/L Chloride 109 H (98-107) mmol/L Carbon Dioxide 24 (21-32) mmol/L Anion Gap 7.0 (3-11) BUN 15 (7-18) mg/dl Creatinine 1.15 D (0.6-1.4) mg/dl Est Cr Clr Drug Dosing 54.1 ml/min Est GFR ( Amer) 68.8 Est GFR (Non-Af Amer) 59.4 BUN/Creatinine Ratio 13.4 (10-20) Glucose 92 (70-99) mg/dl Lactate (0.4-2.0) mmol/L Calcium 8.1 L (8.5-10.1) mg/dl Magnesium (1.8-2.4) mg/dl Total Bilirubin (0.2-1) mg/dl Direct Bilirubin (0-0.2) mg/dl AST (15-37) U/L ALT (12-78) U/L Alkaline Phosphatase (45-117) U/L Troponin I (0-0.045) ng/ml Total Protein (6.4-8.2) gm/dl Albumin (3.4-5.0) gm/dl Lipase (73-393) U/L Specimen Hemolysis Urine Color Dark Yellow Urine Appearance Turbid H (Clear) Urine pH 8.5 H (4.5-7.5) Ur Specific [place] 1.020 (1.000-1.030) Urine Protein 2+ H (Negative) Urine Glucose (UA) Negative (Negative) Urine Ketones Trace H (Negative) Urine Blood 2+ H (Negative) Urine Nitrite Positive H (Negative) Urine Bilirubin Negative (Negative) Urine Urobilinogen Negative (Negative) Ur Leukocyte Esterase 3+ H (Negative) Urine WBC (Auto) >30 H (0-5) /hpf Urine RBC (Auto) >30 H (0-4) /hpf U Hyaline Cast (Auto) 1-5 (0-5) /lpf U Epithel Cells (Auto) 5-10 H (0-5) /lpf Urine Bacteria (Auto) 2+ H (Negative) Influenza Type A (PCR) (Neg) Influenza Type B (PCR) (Neg) 09/03/18 09/03/18 09/03/18 Range/Units 17:22 17:10 17:08 WBC (4.8-10.8) K/uL RBC (4.7-6.1) M/uL Hgb (14.0-18.0) g/dL Hct (42-52) % MCV (80-100) fL MCH (25-34) pg MCHC (32-36) g/dL RDW Std Deviation (36.4-46.3) fL RDW Coeff of Ray (11.5-14.5) % Plt Count (130-400) K/uL MPV (7.4-10.4) fL Immature Gran % (Auto) % Neut % (Auto) % Lymph % (Auto) % [place] % (Auto) % Eos % (Auto) % Baso % (Auto) % Immature Gran # (Auto) (0.00-0.02) K/uL Neut # (Auto) (1.4-6.5) K/uL Lymph # (Auto) (1.2-3.4) K/uL Wilkes # (Auto) (0.11-0.59) K/uL Eos # (Auto) (0-0.5) K/uL Baso # (Auto) (0-0.2) K/uL Neutrophils % (Manual) % Lymphocytes % (Manual) % Monocytes % (Manual) % Neutrophils # (Manual) (1.4-6.5) K/uL Total Absolute Neuts (1.4-6.5) K/uL Lymphocytes # (Manual) (1.2-3.4) K/uL Total Abs Lymphocytes (1.2-3.4) K/uL Monocytes # (Manual) (0.11-0.59) K/uL RBC Morphology PT (9.0-12.0) Seconds INR (0.9-1.1) APTT (21.0-31.0) Seconds PTT Ratio VBG pH 7.47 H (7.36-7.41) VBG pCO2 32 L (38-50) mmHg VBG pO2 48 mmHg VBG HCO3 23 mmol/L VBG O2 Saturation 87.2 % VBG Base Excess 0.2 mEq/L Barometric Pressure 735.3 mm/Hg Sodium (136-145) mmol/L Potassium (3.5-5.1) mmol/L Chloride (98-107) mmol/L Carbon Dioxide (21-32) mmol/L Anion Gap (3-11) BUN (7-18) mg/dl Creatinine (0.6-1.4) mg/dl Est Cr Clr Drug Dosing ml/min Est GFR ( Amer) Est GFR (Non-Af Amer) BUN/Creatinine Ratio (10-20) Glucose (70-99) mg/dl Lactate 1.6 (0.4-2.0) mmol/L Calcium (8.5-10.1) mg/dl Magnesium (1.8-2.4) mg/dl Total Bilirubin (0.2-1) mg/dl Direct Bilirubin (0-0.2) mg/dl AST (15-37) U/L ALT (12-78) U/L Alkaline Phosphatase (45-117) U/L Troponin I (0-0.045) ng/ml Total Protein (6.4-8.2) gm/dl Albumin (3.4-5.0) gm/dl Lipase (73-393) U/L Specimen Hemolysis Urine Color Urine Appearance (Clear) Urine pH (4.5-7.5) Ur Specific [place] (1.000-1.030) Urine Protein (Negative) Urine Glucose (UA) (Negative) Urine Ketones (Negative) Urine Blood (Negative) Urine Nitrite (Negative) Urine Bilirubin (Negative) Urine Urobilinogen (Negative) Ur Leukocyte Esterase (Negative) Urine WBC (Auto) (0-5) /hpf Urine RBC (Auto) (0-4) /hpf U Hyaline Cast (Auto) (0-5) /lpf U Epithel Cells (Auto) (0-5) /lpf Urine Bacteria (Auto) (Negative) Influenza Type A (PCR) Neg for Influ A (Neg) Influenza Type B (PCR) Neg for Influ B (Neg) 09/03/18 09/03/18 09/03/18 Range/Units 17:08 17:08 17:08 WBC 38.57 H* (4.8-10.8) K/uL RBC 5.60 (4.7-6.1) M/uL Hgb 17.1 (14.0-18.0) g/dL Hct 47.9 (42-52) % MCV 85.5 (80-100) fL MCH 30.5 (25-34) pg MCHC 35.7 (32-36) g/dL RDW Std Deviation 46.7 H (36.4-46.3) fL RDW Coeff of Ray 14.9 H (11.5-14.5) % Plt Count 262 (130-400) K/uL MPV 11.9 H (7.4-10.4) fL Immature Gran % (Auto) % Neut % (Auto) % Lymph % (Auto) % [place] % (Auto) % Eos % (Auto) % Baso % (Auto) % Immature Gran # (Auto) (0.00-0.02) K/uL Neut # (Auto) (1.4-6.5) K/uL Lymph # (Auto) (1.2-3.4) K/uL [place] # (Auto) (0.11-0.59) K/uL Eos # (Auto) (0-0.5) K/uL Baso # (Auto) (0-0.2) K/uL Neutrophils % (Manual) 82.0 % Lymphocytes % (Manual) 4.0 % Monocytes % (Manual) 14.0 % Neutrophils # (Manual) 31.63 H (1.4-6.5) K/uL Total Absolute Neuts 31.63 H (1.4-6.5) K/uL Lymphocytes # (Manual) 1.54 (1.2-3.4) K/uL Total Abs Lymphocytes 1.54 (1.2-3.4) K/uL Monocytes # (Manual) 5.40 H (0.11-0.59) K/uL RBC Morphology Unremarkable PT 10.9 (9.0-12.0) Seconds INR 1.1 (0.9-1.1) APTT 25.4 (21.0-31.0) Seconds PTT Ratio 0.9 VBG pH (7.36-7.41) VBG pCO2 (38-50) mmHg VBG pO2 mmHg VBG HCO3 mmol/L VBG O2 Saturation % VBG Base Excess mEq/L Barometric Pressure mm/Hg Sodium 134 L (136-145) mmol/L Potassium 4.2 (3.5-5.1) mmol/L Chloride 101 (98-107) mmol/L Carbon Dioxide 24 (21-32) mmol/L Anion Gap 9.0 (3-11) BUN 18 (7-18) mg/dl Creatinine 1.52 H (0.6-1.4) mg/dl Est Cr Clr Drug Dosing 41.5 ml/min Est GFR ( Amer) 49.1 Est GFR (Non-Af Amer) 42.4 BUN/Creatinine Ratio 11.7 (10-20) Glucose 109 H (70-99) mg/dl Lactate (0.4-2.0) mmol/L Calcium 8.6 (8.5-10.1) mg/dl Magnesium 1.9 (1.8-2.4) mg/dl Total Bilirubin 2.1 H (0.2-1) mg/dl Direct Bilirubin (0-0.2) mg/dl AST 19 (15-37) U/L ALT 26 (12-78) U/L Alkaline Phosphatase 86 (45-117) U/L Troponin I < 0.015 (0-0.045) ng/ml Total Protein 8.1 (6.4-8.2) gm/dl Albumin 4.0 (3.4-5.0) gm/dl Lipase 72 L (73-393) U/L Specimen Hemolysis Urine Color Urine Appearance (Clear) Urine pH (4.5-7.5) Ur Specific [place] (1.000-1.030) Urine Protein (Negative) Urine Glucose (UA) (Negative) Urine Ketones (Negative) Urine Blood (Negative) Urine Nitrite (Negative) Urine Bilirubin (Negative) Urine Urobilinogen (Negative) Ur Leukocyte Esterase (Negative) Urine WBC (Auto) (0-5) /hpf Urine RBC (Auto) (0-4) /hpf U Hyaline Cast (Auto) (0-5) /lpf U Epithel Cells (Auto) (0-5) /lpf Urine Bacteria (Auto) (Negative) Influenza Type A (PCR) (Neg) Influenza Type B (PCR) (Neg)
--- NOTE | 2018-09-04 15:59 | Urology Consultation ---
Date of Consultation September 04, 2018 Assessment & Plan (1) Sepsis due to urinary tract infection: Fevers improving, kidney function normal, and no acute findings on CT. Recommend antibiotic coverage per sensitivities for a total of 14 days. Placed PRN order for B&O suppository for bladder pain if this becomes bothersome for patient. Upon exam patient assures me this discomfort is only mild. Outpatient follow up as scheduled with Dr. Conklin. Patient aware to call our outpatient office if any questions or concerns in the interim. Thank you for allowing us to participate in the care of this patient. Please contact our service if any additional questions or concerns. History of Present Illness Attending Physician: Catrachito Uribe History of Present Illness 83YO established patient of Dr. Conklin s/p outpatient cystoscopy, fuguration on Friday 09/01, who presented to the ER with confusion and UTI symptoms, sepsis. UC&S prelim positive, patient remains on empiric Cipro for antibiotic coverage. CT abdomen/pelvis completed upon admission demonstrates no acute urologic findings. Cr WNL. Patient reports feeling well today. Reports minor bladder "soreness" since Saturday. Bladder does not feel full, states he is emptying well. Is spontaneously voiding without difficulty. Denies fever/chills. Denies nausea/vomiting. Allergies Allergy/AdvReac Type Severity Reaction Status Date / Time clonidine Allergy Severe ANGIOEDEMA-TONGUE Verified 09/03/18 18:35 SWELLS JANEY Inhibitors Allergy Unknown Unknown Verified 09/03/18 18:35 adhesive Allergy Unknown SKIN Verified 09/03/18 18:35 BLISTERING aspirin Allergy Unknown SKIN Verified 09/03/18 18:35 TESTING POSITIVE-RASH hydralazine Allergy Unknown Unknown-PT Verified 09/03/18 18:35 NOT SURE latex Allergy Unknown RASH Verified 09/03/18 18:35 Home Medications Home Medications Medication Instructions Recorded Confirmed Type amlodipine 10 mg PO QAM 04/11/18 09/03/18 History fluticasone-salmeterol [Advair 1 inh INHALATION QAM 04/11/18 09/03/18 History Diskus] garlic 1,000 mg PO QAM 04/11/18 09/03/18 History levothyroxine 88 mcg PO QAM 04/11/18 09/03/18 History losartan 100 mg PO QAM 04/11/18 09/03/18 History potassium chloride 20 meq PO QAM 04/11/18 09/03/18 History prednisone 5 mg PO QAM 04/11/18 09/03/18 History albuterol sulfate [Ventolin HFA] 2 puff INHALATION Q4H PRN 09/03/18 09/03/18 History atorvastatin 20 mg PO DAILY 09/03/18 09/03/18 History cyclobenzaprine 10 mg PO TID PRN 09/03/18 09/03/18 History meloxicam 15 mg PO DAILY 09/03/18 09/03/18 History zaleplon 10 mg PO HS 09/03/18 09/03/18 History Patient History Medical History Asthma BPH (benign prostatic hyperplasia) Bigeminy HX PER RECORDS Bladder tumor CAD (coronary artery disease) NON-OCCLUSIVE Chronic obstructive pulmonary disease STABLE ON CHRONIC PREDNISONE 5MG DAILY GERD (gastroesophageal reflux disease) History of bladder cancer Hypertension Hypothyroidism Surgical History Fusion of spine CERVICAL AND LUMBAR History of appendectomy History of biopsy of bladder History of bladder surgery TURBT= 10/14/17= LMA#5 History of cardiac cath 2008= NO STENTS History of colonoscopy History of cystoscopy Family History Father Heart attack Social History Communication Ability: Effective Beliefs That Will Affect Care: None Current Living Situation: Spouse Other Information That Helps Us Care for You: No Feels Safe at Home: Yes Safety Concerns: Feels Safe At This Time Smoking Status: Never smoker Hx Alcohol Use: No Hx Substance Use: No Review of Systems Constitutional: no fever and no chills Eyes: no problem reported Ear, Nose, Mouth, Throat: + hearing loss Respiratory: no dyspnea Cardiovascular: no chest pain Gastrointestinal: no abdominal pain, no bloating, no nausea and no vomiting Genitourinary (Male): no difficulty urinating, no decreased urination and no genital pain Musculoskeletal: no back pain Integumentary: no problem reported Neurologic: no tingling and no numbness Physical Exam Vital Signs (Past 24 Hours): Last Vital Signs Temp 36.4 C L 09/04/18 15:00 Pulse 84 09/04/18 15:00 Resp 18 09/04/18 15:00 BP 153/90 H 09/04/18 15:00 Pulse Ox 95 09/04/18 15:00 Constitutional: WD/WN, vitals as above Neck: normal visual inspection Respiratory: normal respiratory effort; does not use accessory muscles Cardiovascular: Vessels: no JVD Gastrointestinal (Abdomen): Percussion/Palpation: abdomen soft; abdomen nontender Genitourinary: bladder normal to palpation; no CVA tenderness
[2018-09-04] MEDS ORDERED: BELLADONNA/OPIUM SUPP 60 MG SUPP PR PRN (16:25)
[2018-09-04] MEDS: ZALEPLON 5 MG CAPSULE PO SCH (22:12)
[2018-09-05] MEDS: LEVOTHYROXINE SODIUM 88 MCG TABLET PO SCH (05:38)
[2018-09-05 07:17] LABS: Hematocrit (blood only) 41.5 % (42-52); Hemoglobin 14.6 g/dL (14.0-18.0); Mean Corpuscular Hgb Conc 35.2 g/dL (32-36); Mean Corpuscular Volume 84.5 fL (80-100); Mean Platelet Volume 11.5 fL (7.4-10.4); Platelet Count 242 K/uL (130-400); RDW Coefficient of Variation 14.9 % (11.5-14.5); RDW Standard Deviation 46.2 fL (36.4-46.3); Red Blood Count 4.91 M/uL (4.7-6.1); White Blood Count 25.02 K/uL (4.8-10.8)
[2018-09-05] MEDS: FLUTICASONE/SALMETEROL 250/50 (ADVAIR) 14 PUFF/1 INHALER INH SCH (07:54)
[2018-09-05] MEDS: POTASSIUM CHLORIDE 20 MEQ TABCR PO SCH (07:54)
[2018-09-05] MEDS: MELOXICAM 7.5 MG TAB PO SCH (07:54)
[2018-09-05] MEDS: predniSONE 5 MG TAB PO SCH (07:54)
[2018-09-05] MEDS: ATORVASTATIN 20 MG TAB PO SCH (07:54)
[2018-09-05] MEDS: AMLODIPINE BESYLATE 5 MG TAB PO SCH (07:54)
[2018-09-05] MEDS: LOSARTAN POTASSIUM 50 MG TAB PO SCH (07:54)
[2018-09-05 07:56] LABS: BUN Creatinine Ratio 14.4 (10-20); Calcium 8.5 mg/dl (8.5-10.1); Creatinine Clr Calc Pharmacy 62.8 ml/min; Est GFR (African American) 82.4; Est GFR (Non-African American) 71.1; Potassium 3.5 mmol/L (3.5-5.1)
[2018-09-05] MEDS ORDERED: CIPROFLOXACIN 500 MG TAB PO SCH (09:00)
--- NOTE | 2018-09-05 14:21 | Discharge Summary ---
Date of Service September 05, 2018 Admission HPI Per Admitting Provider 83 y/o M who was brought to the ED by his for c/o AMS. states that at baseline has short term memory loss. She states that he frequently needs redirected. This has been progressive and was occurring prior to his bladder tumor removal on Saturday with Dr. Conklin. Since that time, she feels that his memory is worse. She noted he was seeing things yesterday. He thought his sister was present and she is in the [place]. Today, he could not ambulate well or use his UE well. He did not eat today. He was nauseated but no emesis. Pt states he feels fine at present. He is unable to tell me why he is in the ED, but does remember getting a CT scan. Pt denies fever, SOB, chest pain, abd pain, n/v/c/d, LE pain or swelling. He states he is hungry and his states that he must be feeling better because he would not eat all day. She notes that he is now moving his UE well. Pt had a bladder tumor removal on Saturday with Dr. Conklin. Cipro is listed in home meds, however states that it must have been from a prior use as she was not given any prescriptions post-op on Saturday. Admission Exam Per Admitting Provider Constitutional: WD/WN, vitals as above Eyes: normal visual arndt by confrontation and + anicteric sclerae Neck: normal visual inspection and trachea midline Respiratory: normal respiratory effort, lungs clear to auscultation Cardiovascular: Rate/Rhythm: regular rate and regular rhythm Gastrointestinal (Abdomen): Inspection/Auscultation: abdomen not distended Percussion/Palpation: abdomen soft; abdomen nontender guarding during abd exam but states no pain. "But I am expecting it to." Musculoskeletal: Head/Neck/Chest: normocephalic and head atraumatic negative for edema, peripheral pulses intact Skin: no rashes, warm and dry Neurologic: awake and + confused (unable to tell me why he is in the ED) Speech / Cognition: normal speech Psychiatric: Orientation: alert, oriented to person and oriented to place Principal Diagnosis Urinary Tract Infection Discharge Exam General: Very pleasant male, in no acute distress. HEENT: NC/AT; PERRLA with EOMI; [place] conjunctiva, MMM. Neck: Supple and nontender Cardiac: RRR w/o murmurs, gallops or rubs Lungs: CTA bilaterally; No rhonchi, wheezing, or rales Abdomen: Bowel normoactive X 4; Nontender to light palpation. Extremities: Warm. No edema present Neuro: No focal weakness; episodes of confusion related to short term memory loss. Skin: No rash Discharge Data Allergies Allergy/AdvReac Type Severity Reaction Status Date / Time clonidine Allergy Severe ANGIOEDEMA-TONGUE Verified 09/03/18 18:35 SWELLS JANEY Inhibitors Allergy Unknown Unknown Verified 09/03/18 18:35 adhesive Allergy Unknown SKIN Verified 09/03/18 18:35 BLISTERING aspirin Allergy Unknown SKIN Verified 09/03/18 18:35 TESTING POSITIVE-RASH hydralazine Allergy Unknown Unknown-PT Verified 09/03/18 18:35 NOT SURE latex Allergy Unknown RASH Verified 09/03/18 18:35 Consultations 09/03/18 18:41 ED Decision to Admit Stat 09/03/18 20:36 Consult Case Management - Discharge Planning Routine Consult Urology Routine Ordered Studies 09/03/18 CXR 09/03/18 16:46 CT abd pelvis wo con Stat CT head/brain wo con Stat Hospital Course (1) Sepsis: Presented with leukocytosis, tachycardia, fevers with altered mental status likely related to UTI; Lactate level was 1.6. IV fluids were started at 125 cc/hr. Blood cultures negative; UC+pseudomonas. CT A/P showed decompressed bladder, otherwise negative. CXR negative. Treatment for UTI as noted below. (2) UTI (lower urinary tract infection): U/a positive; UC positive for >100K Pseudomonas. UTI likely related to recent urological procedure. Cipro 400 mg IV was started at admission and converted to Cipro 500 mg BID at discharge, will need to complete a 14 day course. Urology consulted, recommended to follow up with Dr. Conklin as out patient. (3) Acute encephalopathy: Metabolic encephalopathy due to urinary tract infection Related to acute infection. Has chronic short term memory loss. Acute confusion resolved with treatment of UTI. CT head was negative on admission. (4) Acute kidney injury: Creatinine was 1.52 on admission, likely related to acute dehydration and UTI. Improved back to baseline with IV fluids. (5) CKD (chronic kidney disease), stage III: Renally dosed all meds. (6) Bladder cancer: Recent tumor removal by Dr. Conklin. Urology consulted, will need to follow up as outpt for results. (7) Hypertension: Continued Amlodipine 10 mg qAM and Losartan 100 mg qAM. (8) COPD (chronic obstructive pulmonary disease): Continued home Advair BID and Prednisone 5 mg qAM. Ventolin q4hr prn. (9) Hypothyroid: Continued home Synthroid 88 mcg daily. TSH was 1.42. (10) Hyperlipidemia: Continued statin as prescribed. (11) Memory loss: Has short term memory loss issues per . (12) Leukocytosis: WBC increased to 38.5 on admission related to infection; was trending down. Level was 25 prior to discharge. (13) DVT prophylaxis: SCDs. Pt. was stable for discharge on 09/05/18. Will f/u with PCP and urology. Script for Cipro sent to [facility]. Total Time Total Time Spent Total Time Spent (In Minutes): >30 minutes Total Time Includes: Examination of the Patient, Discharge Planning, Medication Reconciliation, Communication With Other Providers and Other Discharge Plan Discharge Items Patient Disposition: Home - Self-Care Reason For Visit: AMS Discharge Diagnosis: Urinary Tract Infection Condition: Good Discharge Goals: Decrease discomfort, Improve disease control, Improve function, Increase independence, Improve nutritional status and Prevent disease Activity: As commented below Exercise/Sports: Gradually increase as tolerated Non-emergency contact: Primary Care Provider Call non-emergency contact if: you have any medication questions, your symptoms worsen, your pain is not controlled, your pain is worsening, your pain is unusual for you, your pain is concerning for you and you have a fever Follow-up/Referrals: Rafiq Haney MD [Primary Care Provider] - 09/12/18 11:00 am (follow up appointment at primary care physician office with the physician assistant finance manager Rosalee) Diet: Regular Addtl Provider Instructions: 1. Urinary Tract Infection * You were admitted for a UTI in the setting of a recent procedure; urine culture was positive for Pseudomonas. * Please continue Ciprofloxacin 500 mg twice daily for treatment of infection. You will need to complete a 14 day course. * Please take an over the counter probiotic in the setting of antibiotics. * Please follow up with Dr. Conklin to discuss results of recent procedure. * Drink plenty of fluids to avoid dehydration. 2. Hypertension * Please continue home Losartan 100 mg daily and Amlodipine 10 mg daily. * You will need to follow up with your primary care provider in 7-10 days to discuss blood pressure management. 3. Please call your primary care provider or go to the ER if you develop the following: * Chest pain or shortness of breath. * Nausea/vomiting or severe watery diarrhea in the setting of antibiotics. Prescriptions: New ciprofloxacin HCl 500 mg Tablet 500 mg PO BID 12 Days Qty: 24 RF: 0 Probiotic 3 billion cell capsule 3,000 mmu cells PO DAILY Qty: 14 RF: 0 Continued albuterol sulfate [Ventolin HFA] 90 mcg/actuation HFA aerosol inhaler 2 puff Inhalation Q4H PRN (Reason: Shortness Of Breath Or Wheezing) RF: 0 zaleplon 10 mg capsule 10 mg PO HS RF: 0 meloxicam 15 mg tablet 15 mg PO DAILY RF: 0 cyclobenzaprine 10 mg tablet 10 mg PO TID PRN (Reason: Spasms) RF: 0 atorvastatin 20 mg tablet 20 mg PO DAILY RF: 0 fluticasone-salmeterol [Advair Diskus] 250-50 mcg/dose Blister With Device 1 inh INHALATION QAM RF: 0 prednisone 5 mg Tablet 5 mg PO QAM RF: 0 garlic 1,000 mg Capsule 1,000 mg PO QAM RF: 0 amlodipine 10 mg Tablet 10 mg PO QAM RF: 0 losartan 100 mg Tablet 100 mg PO QAM RF: 0 levothyroxine 88 mcg Capsule 88 mcg PO QAM RF: 0 potassium chloride 20 mEq Tablet Extended Release 20 meq PO QAM RF: 0 Stand-Alone Forms: [facility] Discharge Orders: Discharge Order (Routine); Ordered 09/05/18 Ordered By: Suzette [place] Admission Data Admit Date/Time: 09/03/18 18:48 Attending Provider: Suzette [place] Admit Provider: Citlalli Wilkerson Primary Care Provider: Rafiq Haney Other Providers: Citlalli Wilkerson ; Antwan Conklin Service: Medical Other Interventions: Discharge Summary Assessment (RN) Last Done: 09/05/18 10:47 Pending Studies at Discharge: No Studies:: Urine Culture 09/03/18: Pseudomonas aeruginosa DC Date/Time DO NOT enter until pt leaves facility: 09/05/18 14:45 Supervising Physician Co-Signing Physician Notes PA Supervision Note: I personally saw and examined the patient. I verified all quinones points and agree with ADAM Adams with the following exceptions and/or additions: Pt feeling much better. Has no abd pain, no urinary symptoms, no back pain other than chronic LBP. Denies CP or SOB. Vitals reviewed NAD RRR no mgr CTAB no wcr Abd +BS soft NT ND Ext no edema 83 yo male here with sepsis and UTI, acute metabolic encephalopathy--> much improved, stable for dc to home on Cipro for Pseudomonas UTI.
== END 2018-09-05 14:45 | disposition home or self-care (01) | DRG 862 ==
LOC: ED 15:00 → 4W 18:48 → SUATTDRO 18:48 → 4W 20:09